=== PATIENT | female | born 1955 | race Hispanic/Latino ===

== ENCOUNTER 2016-11-09 10:46 | Inpatient (IN) | payer OTHER ==
[2016-11-09 12:11] LABS: Basophils % (Auto) 0.2 % (0.0-1.8); Eosinophils % (Auto) 0.1 % (0.0-4.3); Hematocrit 38.4 % (30.3-42.9); Hemoglobin 12.4 gm/dl (10.1-14.3); Mean Corpuscular HGB Conc 32 % (30-34); Mean Corpuscular Hemoglobin 31 pg (28-32); Mean Corpuscular Volume 97 fl (79-97); Platelet Count 244 K/mm3 (140-440); Red Blood Count 3.96 M/mm3 (3.65-5.03); Red Cell Distribution Width 14.3 % (13.2-15.2); White Blood Count 12.3 K/mm3 (4.5-11.0)
[2016-11-09] MEDS ORDERED: ZOSYN/NS 4.5GM/100ML 4.5 GM/100 ML VIAL IV ONE (12:20)
[2016-11-09] MEDS ORDERED: NACL 0.9% 1000 ML 1,000 ML IV ONE (12:20)
[2016-11-09 12:22] LABS: Anion Gap 23 mmol/L; BUN/Creatinine Ratio 31.25; Blood Urea Nitrogen 25 mg/dL (7-17); Calcium 8.8 mg/dL (8.4-10.2); Carbon Dioxide 19 mmol/L (22-30); Chloride 101.7 mmol/L (98-107); Glucose 146 mg/dL (65-100); Potassium 4.4 mmol/L (3.6-5.0); Sodium 139 mmol/L (137-145)
--- NOTE | 2016-11-09 12:26 | Emergency Department Report ---
- General Chief complaint: Medical Clearance Stated complaint: FAILURE TO THRIVE Time Seen by Provider: 11/09/16 11:58 Source: patient, EMS Mode of arrival: Stretcher Limitations: Other - History of Present Illness MD Complaint: generalized weakness -: Gradual Location: generalized Severity: moderate Severity scale (0 -10): 0 Consistency: constant Improves with: none Worsens with: none Associated Symptoms: confusion. denies: chest pain, dark stools, diaphoresis, dysuria, easy bruising, fever/chills, headaches, loss of appetite, nausea/ vomiting, rash, shortness of breath, syncope - Related Data Home Medications Medication Instructions Recorded Confirmed Last Taken Cipro XR TAB 500 mg PO BID 11/09/16 11/09/16 Unknown Clonidine 0.5 mg PO BID 11/09/16 11/09/16 Unknown Lipitor 20 mg PO ONCE 11/09/16 11/09/16 Unknown Propranolol 20 mg PO TID 11/09/16 11/09/16 Unknown amLODIPine [Norvasc] 5 mg PO DAILY 11/09/16 11/09/16 Unknown Allergies Allergy/AdvReac Type Severity Reaction Status Date / Time No Known Allergies Allergy Verified 11/09/16 11:12 ED Review of Systems ROS: Stated complaint: FAILURE TO THRIVE Other details as noted in HPI Comment: Unobtainable due to pts medical conditions ED Past Medical Hx - Past Medical History Previous Medical History?: Yes Hx Hypertension: Yes Hx Psychiatric Treatment: Yes (unknown) - Surgical History Additional Surgical History: unknown - Social History Smoking Status: Former Smoker Substance Use Type: None - Medications Home Medications: Home Medications Medication Instructions Recorded Confirmed Last Taken Type Cipro XR TAB 500 mg PO BID 11/09/16 11/09/16 Unknown History Clonidine 0.5 mg PO BID 11/09/16 11/09/16 Unknown History Lipitor 20 mg PO ONCE 11/09/16 11/09/16 Unknown History Propranolol 20 mg PO TID 11/09/16 11/09/16 Unknown History amLODIPine [Norvasc] 5 mg PO DAILY 11/09/16 11/09/16 Unknown History ED Physical Exam - General Limitations: Altered Mental Status, Other General appearance: lethargic, obtunded - Head Head exam: Present: atraumatic, normocephalic - Eye Eye exam: Present: normal appearance, PERRL - Neck Neck exam: Present: normal inspection, tenderness - Respiratory Respiratory exam: Present: normal lung sounds bilaterally - Cardiovascular Cardiovascular Exam: Present: regular rate, normal rhythm - GI/Abdominal GI/Abdominal exam: Present: soft - Extremities Exam Extremities exam: Present: normal inspection, full ROM - Back Exam Back exam: Present: normal inspection, full ROM - Neurological Exam Neurological exam: Present: altered - Skin Skin exam: Present: warm, dry ED Course Vital Signs 11/09/16 11/09/16 11/09/16 13:36 13:45 14:00 Temperature Respiratory Rate Blood Pressure 139/68 127/59 139/59 11/09/16 11/09/16 11/09/16 14:15 14:30 14:45 Temperature Respiratory Rate Blood Pressure 136/59 131/62 139/67 11/09/16 11/09/16 11/09/16 15:00 15:12 15:15 Temperature Respiratory 20 Rate Blood Pressure 129/60 138/67 11/09/16 15:32 Temperature 99.5 F Respiratory Rate Blood Pressure ED Medical Decision Making - Lab Data Result diagrams: 11/09/16 11:52 11/09/16 12:35 - EKG Data -: EKG Interpreted by Me EKG shows normal: sinus rhythm - Radiology Data Radiology results: report reviewed, image reviewed - Medical Decision Making Questionable pneumonia on cxr , elevated wbc , rest of labs normal , fluids and zosyn givem here , blood cxs done, will admit for possible pneumonia., spoke to admitting doc and agree with lan for admission,. Critical care attestation.: If time is entered above; I have spent that time in minutes in the direct care of this critically ill patient, excluding procedure time. ED Disposition Clinical Impression: Pneumonia Disposition: OP ADMITTED IP TO THIS HOSP Is pt being admited?: Yes Does the pt Need Aspirin: No Condition: Good Instructions: Bacterial Pneumonia (ED) Referrals: MICHAEL PACHECO MD [Primary Care Provider] - 3-5 Days Time of Disposition: 16:40
--- NOTE | 2016-11-09 13:13 | XRay Report ---
PORTABLE CHEST INDICATION: Fever, sepsis. COMPARISON: None similar at this institution. FINDINGS: Portable, frontal chest radiograph demonstrates normal cardiomediastinal silhouette. Aortic knob calcifications. Mild left basilar atelectasis/infiltrate/possible small pleural effusion may partly obscure the left hemidiaphragm and the lateral costophrenic angle. Biapical scarring/pleural thickening. Clear remainder lungs. Intact bones. Probable cholecystectomy clips. CONCLUSION: Mild left basilar opacity suspected, as described. Please correlate. Thank you for the opportunity to participate in this patient's care.
[2016-11-09 13:38] LABS: Alanine Aminotransferase 29 units/L (7-56); Albumin 3.7 g/dL (3.9-5); Albumin/Globulin Ratio 1.2 %; Alkaline Phosphatase 177 units/L (35-129); Anion Gap 23 mmol/L; BUN/Creatinine Ratio 31.25; Blood Urea Nitrogen 25 mg/dL (7-17); Calcium 8.8 mg/dL (8.4-10.2); Carbon Dioxide 20 mmol/L (22-30); Chloride 101.5 mmol/L (98-107); Glucose 127 mg/dL (65-100); Potassium 4.4 mmol/L (3.6-5.0); Sodium 140 mmol/L (137-145); Total Protein 6.9 g/dL (6.3-8.2)
--- NOTE | 2016-11-09 14:05 | Admit Criteria Form ---
Admission Criteria Documentation: PNEUMONIA, COMMUNITY ACQUIRED Clinical Indications for Admission to Inpatient Care ( Place 'X' for any and all applicable criteria): Admission is indicated for ANY ONE of the following (1)(2)(3): [ ]I. Hypoxemia indicated by ANY ONE of the following: [ ]a) Oxygen saturation less than 90% while breathing room air [ ]b) PO2 less than 60 mm Hg (8.0 kPa) while breathing room air [ ]c) Chronic lung disease with significant deterioration from baseline oxygenation [X]II. Appropriate diagnostic testing and treatment unavailable in outpatient or recovery facility (eg,testing or infection control measures unavailable(10) [ ]III. Moderate-risk or high-risk category patients (Pneumonia Severity Index (PSI) class IV or V, or CURB-65 score of 3 or greater). [ ]IV. Outpatient treatment failure as indicated by ANY ONE of the following(9) : [ ]a) Failure to respond to antibiotic (eg, resistant organism) [ ]b) Clinically significant adverse effects from medication (eg, vomiting) [ ]c) Complications of pneumonia (eg, empyema, bacteremia) [ ]d) Significant worsening of comorbid cond necessitating inpatient care (eg, chronic heart failure) [ ]V. Intermediate-risk category patients (eg, PSI class III or CURB-65 score 2) who do not improve with initial therapy and observation. [ ]. Immunocompromised patients (eg, AIDS, chronic steroid use) at moderate or high risk based on clinical evaluation. [ ]VII. Complicated pleural effusions (eg, exudative, loculated) [ ]VIII.Hemodynamic instability [ ] IX. Altered mental status that is severe or persistent. [ ]X. Dehydration that is severe or persistent. [ ]XI. Bacteremia [ ]XII. Respiratory finding (eg. tachypnea) that do not respond to outpatient or observation care treatment Extended stay beyond goal length of stay may be needed for (20) [ ]a) Unclear diagnosis [ ]b) Pleural disease [ ]c) Severe pneumonia or treatment failure (25 [ ]d) Respiratory failure (anticipate invasive or noninvasive ventilatory support) [ ]e) Abnormal serum electrolytes (serum Na concentration less than 135 mEq/L (mmol/L) (32)(33) [ ]f) Clinically significant comorbid illness (eg, heart failure, atrial fibrillation with rapid heart rate, alcohol withdrawal, renal insufficiency)(34)(35) [ ]g) Comorbid acute exacerbation of COPD(36) [ ]h) Concomitant diagnosis of malignancy that may be associated with malnutrition, immunologic impairment, or bronchial obstruction. [ ]i) Concomitant altered mental status [ ]j) Culture-identified Gram-negative or antibiotic-resistant organism (eg, Pseudomonas, methicillin-resistant Staphylococcus aureus)(30) [ ]k) Healthcare-associated pneumonia The original [employer] content created by [employer] has been revised. The portions of the content which have been revised are identified through the use of italic text or in bold, and [facility] has neither reviewed nor approved the modified material. All other unmodified content is copyright [employer]. Please see references footnoted in the original [facility] edition 2016 Admission Criteria Met: Yes
[2016-11-09 15:20] LABS: Bilirubin,Urine NEG (Negative); Blood,Urine NEG (Negative); Ketones,Urine 20 mg/dL (Negative); Leukocyte Esterase,Urine NEG (Negative); Mucus,Urine FEW /HPF; Nitrite,Urine NEG (Negative); Urobilinogen,Urine < 2.0 mg/dL (<2.0)
--- NOTE | 2016-11-09 16:27 | Cat Scan Report ---
CT HEAD WITHOUT CONTRAST INDICATION: Fever, sepsis. COMPARISON: None similar. FINDINGS: Noncontrast head CT demonstrates symmetric, age-appropriate ventricles and sulci without acute or recent infarct, hemorrhage, mass effect or midline shift. Mild periventricular hypodensities and approximately 3 mm left ganglionic lacunar infarct anteriorly, axial image 27, series 2. No abnormal extra-axial fluid collections. Posterior fossa structures and basilar cisterns appear within normal limits. Symmetric eye globes. Leftward nasal septal deviation and a 4 mm leftward nasal septal spur. Mild bilateral sphenoid sinus mucosal thickening anteriorly. Left mastoid tip air cell opacification. Otherwise clear remainder imaged paranasal sinuses and right mastoid air cells. Mild atherosclerotic internal carotid artery calcifications. Intact calvarium. Normal overlying scalp soft tissues. Edentulous jaw. CONCLUSION: No acute intracranial CT abnormality with few other findings, as described. Thank you for the opportunity to participate in this patient's care.
[2016-11-09] MEDS ORDERED: TYLENOL PO PRN (17:06)
[2016-11-09] MEDS ORDERED: DUONEB 0.5 MG-3 MG/3 ML SOLN IH PRN (17:06)
[2016-11-09] MEDS ORDERED: PROVENTIL IH PRN (17:10)
[2016-11-09] MEDS ORDERED: NON-FORMULARY (Lipitor 20 MG) PO SCH (17:15)
--- NOTE | 2016-11-09 17:38 | History and Physical Report ---
History of Present Illness Date of admission: 11/09/16 17:06 Chief complaint: confused, phychotic History of present illness: 61 YO Female with HTN, HLD, admitted to [facility] for Psychosis, and Mood Disorder presents to ED for evaluation. Pt unable to provide history. Pt history taken from [facility] staff, and ED staff. [facility] staff states that patient is despondent and minimally cooperative, but has experienced decreased oral intake, and noncompliant with medication over the past 3 days, and deny reports of fever, chills, CP, Palpitation, muscle cramping, skin rashes, NVD, Falls, or recent ill contacts. Past History Past Medical History: hypertension, hyperlipidemia, other (psychosis, mood disorder) Past Surgical History: No surgical history, Other (reviewed) Social history: single. denies: smoking, alcohol abuse, prescription drug abuse Family history: hypertension Medications and Allergies Allergies Allergy/AdvReac Type Severity Reaction Status Date / Time No Known Allergies Allergy Verified 11/09/16 11:12 Home Medications Medication Instructions Recorded Confirmed Last Taken Type Cipro XR TAB 500 mg PO BID 11/09/16 11/09/16 Unknown History Clonidine 0.5 mg PO BID 11/09/16 11/09/16 Unknown History Lipitor 20 mg PO ONCE 11/09/16 11/09/16 Unknown History Propranolol 20 mg PO TID 11/09/16 11/09/16 Unknown History amLODIPine [Norvasc] 5 mg PO DAILY 11/09/16 11/09/16 Unknown History Active Meds: Active Medications Acetaminophen (Tylenol) 650 mg PO Q4H PRN PRN Reason: Pain MILD(1-3)/Fever >100.5/SANCHEZ Albuterol (Proventil) 2.5 mg IH Q6HRT PRN PRN Reason: Wheezing Amlodipine Besylate (Norvasc) 5 mg PO DAILY JEFFREY Atorvastatin Calcium (Lipitor) 20 mg PO QHS [facility] Azithromycin 500 mg/ Sodium (Chloride) 250 mls @ 250 mls/hr IV Q24H JEFFREY PRN Reason: Protocol Ceftriaxone Sodium (Rocephin/Ns 1 Gm/50 Ml) 1 gm in 50 mls @ 100 mls/hr IV Q24HR JEFFREY PRN Reason: Protocol Miscellaneous Medication (Clonidine) 0.5 mg PO BID JEFFREY Propranolol HCl (Inderal) 20 mg PO TID [facility] Review of Systems ROS unobtainable: due to mental status Exam - Constitutional Vitals: Temp Pulse Resp BP Pulse Ox 99.5 F 20 144/64 11/09/16 15:32 11/09/16 15:12 11/09/16 17:00 General appearance: Present: mild distress, cachectic, disheveled - EENT Eyes: Present: PERRL ENT: hearing intact, clear oral mucosa - Neck Neck: Present: supple, normal ROM - Respiratory Respiratory effort: normal Respiratory: bilateral: CTA - Cardiovascular Rhythm: regular Heart Sounds: Present: S1 & S2 - Extremities Extremities: no ischemia Peripheral Pulses: within normal limits - Abdominal General gastrointestinal: Present: soft, non-tender, non-distended, normal bowel sounds Female genitourinary: Present: normal - Integumentary Integumentary: Present: clear, warm, dry - Musculoskeletal Musculoskeletal: gait normal, strength equal bilaterally - Psychiatric Psychiatric: no intact judgment & insight, no memory intact, no cooperative - Neurologic Neurologic: CNII-XII intact, moves all extremities Results - Labs CBC & Chem 7: 11/09/16 11:52 11/09/16 12:35 Assessment and Plan - Patient Problems (1) Aspiration pneumonia Current Visit: Yes Status: Acute Qualifiers: Aspiration pneumonia type: A Laterality: L Lung location: L Plan to address problem: Pneumonia protocol: IV abx, supplemental oxygen, nebs, aspiration precautions, pulmonary toilet, blood cultures, (2) Psychosis Current Visit: Yes Status: Acute Qualifiers: Psychosis type: P Schizoaffective disorder type: S Schizophrenia type: S Plan to address problem: Psych consulted, [address], 1:1 sitter (3) Mood disorder Current Visit: Yes Status: Acute Plan to address problem: Psych consulted, continue current therapy. (4) HTN (hypertension) Current Visit: Yes Status: Acute Qualifiers: Hypertension type: H Plan to address problem: monitor bp q shift, resume home medication. (5) DVT prophylaxis Current Visit: Yes Status: Acute
[2016-11-09] MEDS ORDERED: ROCEPHIN/NS 1 GM/50 ML 1 GM/50 ML BAG IV ONE (17:40)
[2016-11-09] MEDS: ROCEPHIN/NS 1 GM/50 ML 1 GM/50 ML BAG IV SCH (17:48)
[2016-11-09] MEDS ORDERED: ZITHROMAX 500 MG in NACL 0.9% 250ML 250 ML IV SCH (18:00)
[2016-11-09] MEDS ORDERED: PROPRANOLOL 20 MG PO SCH (20:00)
[2016-11-09] MEDS ORDERED: CLONIDINE PO SCH (22:00)
[2016-11-09] MEDS: INDERAL PO SCH (23:30)
[2016-11-10] MEDS: INDERAL PO SCH ×3 (10:58→21:11)
[2016-11-10] MEDS: ROCEPHIN/NS 1 GM/50 ML 1 GM/50 ML BAG IV SCH ×2 (11:16→18:22)
[2016-11-10] MEDS: NORVASC PO SCH (11:28)
--- NOTE | 2016-11-10 13:33 | Progress Note ---
Assessment and Plan - Patient Problems (1) Aspiration pneumonia Current Visit: Yes Status: Acute Qualifiers: Aspiration pneumonia type: A Laterality: L Lung location: L Plan to address problem: At present no clear evidence of aspiration pneumonia. If so this could be treated with by mouth anabiotic's we'll change patient to by mouth antibodies today. She put out feeding tube. Patient's clear medically to return to [place]. (2) DVT prophylaxis Current Visit: Yes Status: Acute Plan to address problem: Continue Lovenox SCD. (3) HTN (hypertension) Current Visit: Yes Status: Acute Qualifiers: Hypertension type: H Plan to address problem: She currently has optimal control of blood pressure. (4) Mood disorder Current Visit: Yes Status: Acute Plan to address problem: Mood disorder appears to be her problem at this particular time. Patient had been noncompliant with medications. Will transfer back to [place] when stable. Head CT negative chest x-ray showed minimal left lower lobe infiltrate afebrile can be treated with by mouth anabiotic's. She'll and azithromycin daily. History Interval history: He should nonverbal not speaking. We just look at you. Sitter states that he shouldn't has not talked. Will open her mouth up to eat however. Patient Hospital course complicated by pulling out IV. Hospitalist Physical - Constitutional Vitals: Temp Pulse Resp BP Pulse Ox 99.2 F 89 18 107/55 94 11/10/16 09:27 11/10/16 09:27 11/10/16 09:27 11/10/16 09:27 11/10/16 12:10 General appearance: Present: mild distress, cachectic, disheveled - EENT Eyes: Present: PERRL, EOM intact ENT: hearing intact, clear oral mucosa, dentition normal - Respiratory Respiratory effort: normal Respiratory: bilateral: CTA - Cardiovascular Rhythm: regular Heart Sounds: Present: S1 & S2 - Extremities Extremities: no ischemia, pulses intact, No edema Peripheral Pulses: within normal limits - Abdominal General gastrointestinal: soft, non-tender, non-distended - Integumentary Integumentary: Present: clear, warm, dry, normal turgor. Absent: jaundice, rash , clammy, pale - Psychiatric Psychiatric: other (inappropriate multiple) - Neurologic Neurologic: other (focal deficits noted.) Results - Labs CBC & Chem 7: 11/09/16 11:52 11/09/16 12:35 Labs: Laboratory Last Values WBC 12.3 K/mm3 (4.5-11.0) H 11/09/16 11:52 RBC 3.96 M/mm3 (3.65-5.03) 11/09/16 11:52 Hgb 12.4 gm/dl (10.1-14.3) 11/09/16 11:52 Hct 38.4 % (30.3-42.9) 11/09/16 11:52 MCV 97 fl (79-97) 11/09/16 11:52 MCH 31 pg (28-32) 11/09/16 11:52 MCHC 32 % (30-34) 11/09/16 11:52 RDW 14.3 % (13.2-15.2) 11/09/16 11:52 Plt Count 244 K/mm3 (140-440) 11/09/16 11:52 Lymph % (Auto) 13.0 % (13.4-35.0) L 11/09/16 11:52 [place] % (Auto) 10.5 % (0.0-7.3) H 11/09/16 11:52 Eos % (Auto) 0.1 % (0.0-4.3) 11/09/16 11:52 Baso % (Auto) 0.2 % (0.0-1.8) 11/09/16 11:52 Lymph # 1.6 K/mm3 (1.2-5.4) 11/09/16 11:52 [place] # 1.3 K/mm3 (0.0-0.8) H 11/09/16 11:52 Eos # 0.0 K/mm3 (0.0-0.4) 11/09/16 11:52 Baso # 0.0 K/mm3 (0.0-0.1) 11/09/16 11:52 Seg Neutrophils % 76.2 % (40.0-70.0) H 11/09/16 11:52 Seg Neutrophils # 9.4 K/mm3 (1.8-7.7) H 11/09/16 11:52 ESR 32 mm/Hr (0-20) 11/09/16 12:35 Sodium 140 mmol/L (137-145) 11/09/16 12:35 Potassium 4.4 mmol/L (3.6-5.0) 11/09/16 12:35 Chloride 101.5 mmol/L (98-107) 11/09/16 12:35 Carbon Dioxide 20 mmol/L (22-30) L 11/09/16 12:35 Anion Gap 23 mmol/L 11/09/16 12:35 BUN 25 mg/dL (7-17) H 11/09/16 12:35 Creatinine 0.8 mg/dL (0.7-1.2) 11/09/16 12:35 Estimated GFR > 60 ml/min 11/09/16 12:35 BUN/Creatinine Ratio 31.25 % 11/09/16 12:35 Glucose 127 mg/dL (65-100) H 11/09/16 12:35 Lactic Acid 1.30 mmol/L (0.7-2.0) 11/09/16 15:19 Calcium 8.8 mg/dL (8.4-10.2) 11/09/16 12:35 Total Bilirubin 0.40 mg/dL (0.1-1.2) 11/09/16 12:35 AST 65 units/L (5-40) H 11/09/16 12:35 ALT 29 units/L (7-56) 11/09/16 12:35 Alkaline Phosphatase 177 units/L (35-129) H 11/09/16 12:35 C-Reactive Protein 1.60 mg/dL (0.00-1.30) H 11/09/16 12:35 Total Protein 6.9 g/dL (6.3-8.2) 11/09/16 12:35 Albumin 3.7 g/dL (3.9-5) L 11/09/16 12:35 Albumin/Globulin Ratio 1.2 % 11/09/16 12:35 Urine Color Yellow (Yellow) 11/09/16 15:07 Urine Turbidity Clear (Clear) 11/09/16 15:07 Urine pH 5.0 (5.0-7.0) 11/09/16 15:07 Ur Specific [place] 1.021 (1.003-1.030) 11/09/16 15:07 Urine Protein 30 mg/dl mg/dL (Negative) 11/09/16 15:07 Urine Glucose (UA) Neg mg/dL (Negative) 11/09/16 15:07 Urine Ketones 20 mg/dL (Negative) 11/09/16 15:07 Urine Blood Neg (Negative) 11/09/16 15:07 Urine Nitrite Neg (Negative) 11/09/16 15:07 Urine Bilirubin Neg (Negative) 11/09/16 15:07 Urine Urobilinogen < 2.0 mg/dL (<2.0) 11/09/16 15:07 Ur Leukocyte Esterase Neg (Negative) 11/09/16 15:07 Urine WBC (Auto) 2.0 /HPF (0.0-6.0) 11/09/16 15:07 Urine RBC (Auto) 1.0 /HPF (0.0-6.0) 11/09/16 15:07 U Epithel Cells (Auto) < 1.0 /HPF (0-13.0) 11/09/16 15:07 Urine Mucus Few /HPF 11/09/16 15:07
[2016-11-10] MEDS: ZITHROMAX PO SCH (18:22)
[2016-11-10] MEDS: XYLOCAINE 1% MPF 5 mL INFILTRATI SCH (19:36)
[2016-11-10] MEDS: ROCEPHIN IM SCH (19:36)
[2016-11-11] MEDS: D5NS 1,000 ML IV SCH ×2 (01:57→15:03)
[2016-11-11] MEDS: INDERAL PO SCH ×3 (10:49→23:55)
[2016-11-11] MEDS: NORVASC PO SCH (10:50)
--- NOTE | 2016-11-11 12:28 | Progress Note ---
Assessment and Plan - Patient Problems (1) Aspiration pneumonia Current Visit: Yes Status: Acute Qualifiers: Aspiration pneumonia type: A Laterality: L Lung location: L Plan to address problem: Aspiration pneumonia resolved patient on by mouth anabiotic's if she would swallow. She does swallow from time to time. She has IM Rocephin until we can improve her mental state. Patient is being cleared for transfer she does not have pneumonia at this time. (2) DVT prophylaxis Current Visit: Yes Status: Acute Plan to address problem: Continue Lovenox SCD. (3) HTN (hypertension) Current Visit: Yes Status: Acute Qualifiers: Hypertension type: H Plan to address problem: His blood pressure is stable despite only taking blood pressure medications periodically because she would take 1 one day and refused the next. (4) Mood disorder Current Visit: Yes Status: Acute Plan to address problem: Mood disorder appears to be her problem at this particular time. Patient had been noncompliant with medications. Will transfer back to [place] when stable. Head CT negative chest x-ray showed minimal left lower lobe infiltrate afebrile can be treated with by mouth anabiotic's. She'll and azithromycin daily. Patient will require transfer to mental health facility she is being cleared for transfer back. History Interval history: After very long conversation patient did smile at me temporarily and attempted lab and attempted talk and went right back in a catatonic type state and stopped talking. She rub my hand for a while and then stopped talking again. Spoke with Mathew said that patient is been doing this for several months eating only 1 or 2 bites of food then that's it. Patient ruled out for aspiration pneumonia. She remains in a catatonic type state the majority of the time. Will require psych referral patient is being cleared for transfer to psych unit. Hospitalist Physical - Constitutional Vitals: Temp Pulse Resp BP Pulse Ox 99.8 F H 95 H 18 146/81 100 11/11/16 08:10 11/11/16 10:50 11/11/16 11:09 11/11/16 10:50 11/10/16 23:15 General appearance: Present: mild distress, cachectic, disheveled - EENT Eyes: Present: PERRL, EOM intact ENT: hearing intact, clear oral mucosa, dentition normal - Neck Neck: Present: supple, normal ROM - Respiratory Respiratory effort: normal Respiratory: bilateral: CTA - Cardiovascular Rhythm: regular Heart Sounds: Present: S1 & S2 - Extremities Extremities: pulses intact, pulses symmetrical, No edema Extremity abnormal: edema Peripheral Pulses: within normal limits - Abdominal General gastrointestinal: soft, non-tender, non-distended - Integumentary Integumentary: Present: clear, warm, dry - Psychiatric Psychiatric: depressed, other (catatonic alert but unresponsive) Results - Labs CBC & Chem 7: 11/09/16 11:52 11/09/16 12:35 Labs: Laboratory Last Values WBC 12.3 K/mm3 (4.5-11.0) H 11/09/16 11:52 RBC 3.96 M/mm3 (3.65-5.03) 11/09/16 11:52 Hgb 12.4 gm/dl (10.1-14.3) 11/09/16 11:52 Hct 38.4 % (30.3-42.9) 11/09/16 11:52 MCV 97 fl (79-97) 11/09/16 11:52 MCH 31 pg (28-32) 11/09/16 11:52 MCHC 32 % (30-34) 11/09/16 11:52 RDW 14.3 % (13.2-15.2) 11/09/16 11:52 Plt Count 244 K/mm3 (140-440) 11/09/16 11:52 Lymph % (Auto) 13.0 % (13.4-35.0) L 11/09/16 11:52 [place] % (Auto) 10.5 % (0.0-7.3) H 11/09/16 11:52 Eos % (Auto) 0.1 % (0.0-4.3) 11/09/16 11:52 Baso % (Auto) 0.2 % (0.0-1.8) 11/09/16 11:52 Lymph # 1.6 K/mm3 (1.2-5.4) 11/09/16 11:52 [place] # 1.3 K/mm3 (0.0-0.8) H 11/09/16 11:52 Eos # 0.0 K/mm3 (0.0-0.4) 11/09/16 11:52 Baso # 0.0 K/mm3 (0.0-0.1) 11/09/16 11:52 Seg Neutrophils % 76.2 % (40.0-70.0) H 11/09/16 11:52 Seg Neutrophils # 9.4 K/mm3 (1.8-7.7) H 11/09/16 11:52 ESR 32 mm/Hr (0-20) 11/09/16 12:35 Sodium 140 mmol/L (137-145) 11/09/16 12:35 Potassium 4.4 mmol/L (3.6-5.0) 11/09/16 12:35 Chloride 101.5 mmol/L (98-107) 11/09/16 12:35 Carbon Dioxide 20 mmol/L (22-30) L 11/09/16 12:35 Anion Gap 23 mmol/L 11/09/16 12:35 BUN 25 mg/dL (7-17) H 11/09/16 12:35 Creatinine 0.8 mg/dL (0.7-1.2) 11/09/16 12:35 Estimated GFR > 60 ml/min 11/09/16 12:35 BUN/Creatinine Ratio 31.25 % 11/09/16 12:35 Glucose 127 mg/dL (65-100) H 11/09/16 12:35 POC Glucose 97 (70-105) 11/11/16 04:57 Lactic Acid 1.30 mmol/L (0.7-2.0) 11/09/16 15:19 Calcium 8.8 mg/dL (8.4-10.2) 11/09/16 12:35 Total Bilirubin 0.40 mg/dL (0.1-1.2) 11/09/16 12:35 AST 65 units/L (5-40) H 11/09/16 12:35 ALT 29 units/L (7-56) 11/09/16 12:35 Alkaline Phosphatase 177 units/L (35-129) H 11/09/16 12:35 C-Reactive Protein 1.60 mg/dL (0.00-1.30) H 11/09/16 12:35 Total Protein 6.9 g/dL (6.3-8.2) 11/09/16 12:35 Albumin 3.7 g/dL (3.9-5) L 11/09/16 12:35 Albumin/Globulin Ratio 1.2 % 11/09/16 12:35 Urine Color Yellow (Yellow) 11/09/16 15:07 Urine Turbidity Clear (Clear) 11/09/16 15:07 Urine pH 5.0 (5.0-7.0) 11/09/16 15:07 Ur Specific [place] 1.021 (1.003-1.030) 11/09/16 15:07 Urine Protein 30 mg/dl mg/dL (Negative) 11/09/16 15:07 Urine Glucose (UA) Neg mg/dL (Negative) 11/09/16 15:07 Urine Ketones 20 mg/dL (Negative) 11/09/16 15:07 Urine Blood Neg (Negative) 11/09/16 15:07 Urine Nitrite Neg (Negative) 11/09/16 15:07 Urine Bilirubin Neg (Negative) 11/09/16 15:07 Urine Urobilinogen < 2.0 mg/dL (<2.0) 11/09/16 15:07 Ur Leukocyte Esterase Neg (Negative) 11/09/16 15:07 Urine WBC (Auto) 2.0 /HPF (0.0-6.0) 11/09/16 15:07 Urine RBC (Auto) 1.0 /HPF (0.0-6.0) 11/09/16 15:07 U Epithel Cells (Auto) < 1.0 /HPF (0-13.0) 11/09/16 15:07 Urine Mucus Few /HPF 11/09/16 15:07
[2016-11-11] MEDS: XYLOCAINE 1% MPF 5 mL INFILTRATI SCH (14:28)
[2016-11-11] MEDS: ZITHROMAX PO SCH (14:28)
[2016-11-11] MEDS: ROCEPHIN IM SCH (14:29)
--- NOTE | 2016-11-11 18:52 | Consultation ---
History of Present Illness - Reason for Consult Consult date: 11/11/16 Reason for consult: Mental Health Evaluation Requesting physician: MAURICIO KEVIN - Chief Complaint Chief complaint: "Confused" - History of Present Psychiatric Illness 61 y.o. white female presenting to [facility] for failure to thrive. Patient came from [facility] (Psychosis/Depression). Today patient was calm, but uncooperative during the assessment. During my conversation, patient had poor eye contact with delayed responses to questions. Patient had the bed sheets pulled up over her head, possibly responding to some type of stimuli. She stated that she may have bipolar disorder. She thinks that the staff is out to "harm" her. I explained to her that's not the case. She was not able to tell me her or the current President of the [place]. She was able to recall 2/3 numbers ( 4,8,11) within 5 mins. After she answered the question about recalling numbers, she stated "I am done talking." No gestures of SI/HI's. Per the production staff worker, patient has refused to eat and take PO medications. Medications and Allergies Allergies Allergy/AdvReac Type Severity Reaction Status Date / Time No Known Allergies Allergy Verified 11/09/16 11:12 Home Medications Medication Instructions Recorded Confirmed Last Taken Type AtorvaSTATin [Lipitor] 20 mg PO ONCE 11/09/16 11/09/16 Unknown History Cipro XR TAB 500 mg PO BID 11/09/16 11/09/16 Unknown History HYDROcodone/APAP 5-325 [[place] 1 tab PO Q6H PRN 11/09/16 11/09/16 Unknown History 5-325 mg TAB] Promethazine [Phenergan TAB] 25 mg PO Q6H PRN 11/09/16 11/09/16 Unknown History Propranolol HCl [Propranolol HCl] 20 mg PO TID 11/09/16 11/09/16 Unknown History amLODIPine [Norvasc] 5 mg PO DAILY 11/09/16 11/09/16 Unknown History clonazePAM [KlonoPIN] 0.5 mg PO BID 11/09/16 11/09/16 Unknown History Active Meds: Active Medications Acetaminophen (Tylenol) 650 mg PO Q4H PRN PRN Reason: Pain MILD(1-3)/Fever >100.5/SANCHEZ Albuterol (Proventil) 2.5 mg IH Q6HRT PRN PRN Reason: Wheezing Amlodipine Besylate (Norvasc) 5 mg PO DAILY [facility] Last Admin: 11/11/16 10:50 Dose: 5 mg Atorvastatin Calcium (Lipitor) 20 mg PO QHS [facility] Last Admin: 11/10/16 21:11 Dose: Not Given Azithromycin (Zithromax) 500 mg PO QDAY [facility] Last Admin: 11/11/16 14:28 Dose: Not Given Ceftriaxone Sodium (Rocephin) 1 gm IM Q24HR JEFFREY PRN Reason: Protocol Stop: 11/12/16 15:59 Last Admin: 11/11/16 14:29 Dose: 1 gm Clonazepam (Klonopin) 0.5 mg PO BID [facility] Last Admin: 11/11/16 10:50 Dose: 0.5 mg Dextrose/Sodium Chloride (D5ns) 1,000 mls @ 75 mls/hr IV DIRECT [facility] Last Admin: 11/11/16 15:03 Dose: 75 mls/hr Lidocaine (Xylocaine 1% Mpf 5 Ml) 2 ml INFILTRATI DAILY [facility] Stop: 11/12/16 15:59 Last Admin: 11/11/16 14:28 Dose: 2 ml Propranolol HCl (Inderal) 20 mg PO TID [facility] Last Admin: 11/11/16 18:40 Dose: Not Given Past psychiatric history - Past Medical History Past Medical History: hypertension Past Surgical History: No surgical history - past Psychiatric treatment and history Psych: Bipolar Mental Status Exam - Vital signs Last Vital Signs Temp 98.7 F 11/11/16 15:45 Pulse 97 H 11/11/16 15:45 Resp 18 11/11/16 15:45 BP 163/75 11/11/16 15:45 Pulse Ox 100 11/10/16 23:15 - Exam Narrative exam: ROS: (+) psychosis MSE: Appearance: calm, uncooperative Behavior: poor eye contact Speech: regular rate and tone Mood: "okay" Affect: congruent to mood Thought Process: circumstantial Thought Content: denies SI/HI's and AVH's Motor Activity: lying in bed Cognition: a/ox1 Insight: poor Judgment: poor Results Result Diagrams: 11/09/16 11:52 11/09/16 12:35 Abnormal lab results 11/11/16 Range/Units 12:32 POC Glucose 119 H (70-105) All other labs normal. Assessment and Plan Assessment and plan: Impression: Unspecified Mood DO with psychotic features. 61 y.o. white female presenting to [facility] for failure to thrive. Patient came from [facility] ( Psychosis/Depression). Today patient was calm, but uncooperative during the assessment. During my conversation, patient had poor eye contact and with delayed responses to questions. Patient had the bed sheets pulled up over her head, possibly responding to some type of stimuli. She stated that she may have bipolar disorder. No gestures of SI/HI's. LFT's elevated. Poor nutritional intake. Patient medically compromised. DD: Depressive DO, R/O Bipolar Recommendation/Plan: Continue 1013. Patient has poor insight of her current medical condition and unable to care for self. Start Zyprexa Zydis for psychosis /mood and Zoloft 50 mg PO for depression. Discussed possible metabolic side effects of Zyprexa. Discussed possible suicidality and medication induced jessica reference antidepressants.
[2016-11-11] MEDS: ZOLOFT PO SCH (23:57)
[2016-11-12] MEDS: INDERAL PO SCH ×6 (00:07→21:54)
[2016-11-12] MEDS: ZOLOFT PO SCH ×2 (00:09→10:41)
[2016-11-12] MEDS ORDERED: APRESOLINE IV SCH (02:00)
[2016-11-12] MEDS: APRESOLINE IV PRN (02:14)
[2016-11-12] MEDS: D5NS 1,000 ML IV SCH ×2 (04:20→19:25)
[2016-11-12] MEDS: ZITHROMAX PO SCH (10:41)
[2016-11-12] MEDS: XYLOCAINE 1% MPF 5 mL INFILTRATI SCH (10:42)
[2016-11-12] MEDS: NORVASC PO SCH (10:42)
[2016-11-12] MEDS: ROCEPHIN IM SCH (10:42)
[2016-11-12] MEDS ORDERED: LOMOTIL PO PRN (15:22)
--- NOTE | 2016-11-12 15:22 | Progress Note ---
Assessment and Plan - Patient Problems (1) Aspiration pneumonia Current Visit: Yes Status: Acute Qualifiers: Aspiration pneumonia type: A Laterality: L Lung location: L Plan to address problem: Aspiration pneumonia resolved patient on by mouth anabiotic's if she would swallow. She does swallow from time to time. She has IM Rocephin until we can improve her mental state. Patient is being cleared for transfer she does not have pneumonia at this time. (2) DVT prophylaxis Current Visit: Yes Status: Acute Plan to address problem: Continue Lovenox SCD. (3) HTN (hypertension) Current Visit: Yes Status: Acute Qualifiers: Hypertension type: essential hypertension Qualified Code(s): I10 - Essential (primary) hypertension Plan to address problem: At present remains very well controlled we'll continue present management. (4) Mood disorder Current Visit: Yes Status: Acute Plan to address problem: A chest started on Zyprexa and Zoloft. Unlikely to make patient feel better in less than 24 hours. But she has improved. She's been clear for psychiatric referral. Transfer. She has been medically cleared for transfer. History Interval history: Patient today of talking states she has diarrhea. This is the second most time she is verbalizes understanding since she's been here patient states she has diarrhea is uncertain where she would like to go with shot go home with or back to [place]. Recent started on Zyprexa. Zoloft. H&H is had negative medical workup negative for infectious process has been cleared for psychiatric transfer. Hospitalist Physical - Constitutional Vitals: Temp Pulse Resp BP Pulse Ox 98.2 F 111 H 20 160/80 96 11/12/16 07:48 11/12/16 07:48 11/12/16 07:48 11/12/16 07:48 11/12/16 07:48 General appearance: Present: mild distress, cachectic, disheveled, other - EENT Eyes: Present: PERRL, EOM intact ENT: hearing intact, clear oral mucosa, dentition normal - Neck Neck: Present: supple (eating today.), normal ROM - Respiratory Respiratory: bilateral: CTA - Cardiovascular Rhythm: regular - Extremities Extremities: no ischemia, pulses intact, pulses symmetrical, No edema, normal temperature, Full ROM Extremity abnormal: edema Peripheral Pulses: within normal limits - Abdominal General gastrointestinal: soft, non-tender, non-distended - Psychiatric Psychiatric: depressed, other (poor judgment still depressed demeanor) - Neurologic Neurologic: no focal deficits, moves all extremities Results - Labs CBC & Chem 7: 11/09/16 11:52 11/09/16 12:35 Labs: Laboratory Last Values WBC 12.3 K/mm3 (4.5-11.0) H 11/09/16 11:52 RBC 3.96 M/mm3 (3.65-5.03) 11/09/16 11:52 Hgb 12.4 gm/dl (10.1-14.3) 11/09/16 11:52 Hct 38.4 % (30.3-42.9) 11/09/16 11:52 MCV 97 fl (79-97) 11/09/16 11:52 MCH 31 pg (28-32) 11/09/16 11:52 MCHC 32 % (30-34) 11/09/16 11:52 RDW 14.3 % (13.2-15.2) 11/09/16 11:52 Plt Count 244 K/mm3 (140-440) 11/09/16 11:52 Lymph % (Auto) 13.0 % (13.4-35.0) L 11/09/16 11:52 [place] % (Auto) 10.5 % (0.0-7.3) H 11/09/16 11:52 Eos % (Auto) 0.1 % (0.0-4.3) 11/09/16 11:52 Baso % (Auto) 0.2 % (0.0-1.8) 11/09/16 11:52 Lymph # 1.6 K/mm3 (1.2-5.4) 11/09/16 11:52 [place] # 1.3 K/mm3 (0.0-0.8) H 11/09/16 11:52 Eos # 0.0 K/mm3 (0.0-0.4) 11/09/16 11:52 Baso # 0.0 K/mm3 (0.0-0.1) 11/09/16 11:52 Seg Neutrophils % 76.2 % (40.0-70.0) H 11/09/16 11:52 Seg Neutrophils # 9.4 K/mm3 (1.8-7.7) H 11/09/16 11:52 ESR 32 mm/Hr (0-20) 11/09/16 12:35 Sodium 140 mmol/L (137-145) 11/09/16 12:35 Potassium 4.4 mmol/L (3.6-5.0) 11/09/16 12:35 Chloride 101.5 mmol/L (98-107) 11/09/16 12:35 Carbon Dioxide 20 mmol/L (22-30) L 11/09/16 12:35 Anion Gap 23 mmol/L 11/09/16 12:35 BUN 25 mg/dL (7-17) H 11/09/16 12:35 Creatinine 0.8 mg/dL (0.7-1.2) 11/09/16 12:35 Estimated GFR > 60 ml/min 11/09/16 12:35 BUN/Creatinine Ratio 31.25 % 11/09/16 12:35 Glucose 127 mg/dL (65-100) H 11/09/16 12:35 POC Glucose 119 (70-105) H 11/11/16 12:32 Lactic Acid 1.30 mmol/L (0.7-2.0) 11/09/16 15:19 Calcium 8.8 mg/dL (8.4-10.2) 11/09/16 12:35 Total Bilirubin 0.40 mg/dL (0.1-1.2) 11/09/16 12:35 AST 65 units/L (5-40) H 11/09/16 12:35 ALT 29 units/L (7-56) 11/09/16 12:35 Alkaline Phosphatase 177 units/L (35-129) H 11/09/16 12:35 C-Reactive Protein 1.60 mg/dL (0.00-1.30) H 11/09/16 12:35 Total Protein 6.9 g/dL (6.3-8.2) 11/09/16 12:35 Albumin 3.7 g/dL (3.9-5) L 11/09/16 12:35 Albumin/Globulin Ratio 1.2 % 11/09/16 12:35 Urine Color Yellow (Yellow) 11/09/16 15:07 Urine Turbidity Clear (Clear) 11/09/16 15:07 Urine pH 5.0 (5.0-7.0) 11/09/16 15:07 Ur Specific [place] 1.021 (1.003-1.030) 11/09/16 15:07 Urine Protein 30 mg/dl mg/dL (Negative) 11/09/16 15:07 Urine Glucose (UA) Neg mg/dL (Negative) 11/09/16 15:07 Urine Ketones 20 mg/dL (Negative) 11/09/16 15:07 Urine Blood Neg (Negative) 11/09/16 15:07 Urine Nitrite Neg (Negative) 11/09/16 15:07 Urine Bilirubin Neg (Negative) 11/09/16 15:07 Urine Urobilinogen < 2.0 mg/dL (<2.0) 11/09/16 15:07 Ur Leukocyte Esterase Neg (Negative) 11/09/16 15:07 Urine WBC (Auto) 2.0 /HPF (0.0-6.0) 11/09/16 15:07 Urine RBC (Auto) 1.0 /HPF (0.0-6.0) 11/09/16 15:07 U Epithel Cells (Auto) < 1.0 /HPF (0-13.0) 11/09/16 15:07 Urine Mucus Few /HPF 11/09/16 15:07
--- NOTE | 2016-11-12 17:10 | Progress Note ---
Subjective - Reason for Consult Consult date: 11/12/16 Reason for consult: psychiatric follow up - Chief Complaint Chief complaint: "Confused" 61 y.o. white female presenting to [facility] for failure to thrive. Patient came from [facility] (Psychosis/Depression). Today patient was not participating in the interview. She had her eyes closed and the sheet pulled over her. The sitter reported she has been making bizarre statements with the theme of sex. She told the sitter she could not eat until she had sex. Earlier in the day the patient reportedly complained about diarrhea. The record indicates she on an opiate at home, every 6 hours as needed. Questionable opiate withdrawal. She has also been complaining about being cold. Mental Status Exam - Vital signs Last Vital Signs Temp 98.6 F 11/12/16 16:00 Pulse 89 11/12/16 16:00 Resp 20 11/12/16 16:00 BP 162/74 11/12/16 16:00 Pulse Ox 96 11/12/16 07:48 - Exam Narrative exam: ROS: (+) psychosis MSE: Appearance: uncooperative Behavior: poor eye contact Speech: would not speak today Mood: unable to etermine Affect: congruent to mood Thought Process: unable to determine Thought Content: staff report she is having auditory hallucinations Motor Activity: lying in bed Cognition: a/o unable to assess Insight: poor Judgment: poor Assessment and Plan Impression: Unspecified Mood DO with psychotic features. 61 y.o. white female presenting to [facility] for failure to thrive. Patient came from [facility] ( Psychosis/Depression. Poor nutritional intake. Patient medically compromised. consider possible opiate withdrawal-diarrhea/abdominal cramps/flu like symptoms DD: Depressive DO, R/O Bipolar Recommendation/Plan: Continue 1013. Patient has poor insight of her current medical condition and unable to care for self. Continue Zyprexa Zydis for psychosis/mood and Zoloft 50 mg PO for depression.
[2016-11-13] MEDS: D5NS 1,000 ML IV SCH ×2 (09:07→21:46)
[2016-11-13] MEDS: INDERAL PO SCH ×4 (09:09→21:55)
[2016-11-13] MEDS: ZITHROMAX PO SCH (11:20)
[2016-11-13] MEDS: ZOLOFT PO SCH (11:20)
[2016-11-13] MEDS: NORVASC PO SCH (11:20)
--- NOTE | 2016-11-13 14:06 | Progress Note ---
Assessment and Plan - Patient Problems (1) Aspiration pneumonia Current Visit: Yes Status: Resolved Qualifiers: Aspiration pneumonia type: A Laterality: L Lung location: L Plan to address problem: Aspiration pneumonia resolved patient on by mouth anabiotic's if she would swallow. She does swallow from time to time. She has IM Rocephin until we can improve her mental state. Patient is being cleared for transfer she does not have pneumonia at this time. (2) DVT prophylaxis Current Visit: Yes Status: Acute Plan to address problem: Continue Lovenox SCD. (3) HTN (hypertension) Current Visit: Yes Status: Acute Qualifiers: Hypertension type: essential hypertension Qualified Code(s): I10 - Essential (primary) hypertension Plan to address problem: At present remains very well controlled we'll continue present management. (4) Mood disorder Current Visit: Yes Status: Acute Plan to address problem: At present awaiting inpatient psychiatric transfer. Patient is being cleared medically for transfer to inpatient psych unit. History Interval history: A is back showing psychotic behavior today just staring out the window would not speak today. Awaiting inpatient psych. Hospitalist Physical - Constitutional Vitals: Temp Pulse Resp BP Pulse Ox 99 F 89 16 137/69 95 11/13/16 07:10 11/13/16 07:10 11/13/16 07:10 11/13/16 07:10 11/13/16 07:10 General appearance: Present: mild distress, cachectic, disheveled, other - EENT Eyes: Present: PERRL, EOM intact ENT: hearing intact, clear oral mucosa, dentition normal - Neck Neck: Present: supple, normal ROM - Respiratory Respiratory: bilateral: CTA - Cardiovascular Rhythm: regular Heart Sounds: Present: S1 & S2 - Extremities Extremities: no ischemia, pulses intact, pulses symmetrical, No edema, normal temperature Peripheral Pulses: within normal limits - Abdominal General gastrointestinal: soft, non-tender, non-distended - Integumentary Integumentary: Present: clear, warm, dry - Psychiatric Psychiatric: cooperative, agitated - Neurologic Neurologic: CNII-XII intact, no focal deficits Results - Labs CBC & Chem 7: 11/09/16 11:52 11/09/16 12:35 Labs: Laboratory Last Values WBC 12.3 K/mm3 (4.5-11.0) H 11/09/16 11:52 RBC 3.96 M/mm3 (3.65-5.03) 11/09/16 11:52 Hgb 12.4 gm/dl (10.1-14.3) 11/09/16 11:52 Hct 38.4 % (30.3-42.9) 11/09/16 11:52 MCV 97 fl (79-97) 11/09/16 11:52 MCH 31 pg (28-32) 11/09/16 11:52 MCHC 32 % (30-34) 11/09/16 11:52 RDW 14.3 % (13.2-15.2) 11/09/16 11:52 Plt Count 244 K/mm3 (140-440) 11/09/16 11:52 Lymph % (Auto) 13.0 % (13.4-35.0) L 11/09/16 11:52 [place] % (Auto) 10.5 % (0.0-7.3) H 11/09/16 11:52 Eos % (Auto) 0.1 % (0.0-4.3) 11/09/16 11:52 Baso % (Auto) 0.2 % (0.0-1.8) 11/09/16 11:52 Lymph # 1.6 K/mm3 (1.2-5.4) 11/09/16 11:52 [place] # 1.3 K/mm3 (0.0-0.8) H 11/09/16 11:52 Eos # 0.0 K/mm3 (0.0-0.4) 11/09/16 11:52 Baso # 0.0 K/mm3 (0.0-0.1) 11/09/16 11:52 Seg Neutrophils % 76.2 % (40.0-70.0) H 11/09/16 11:52 Seg Neutrophils # 9.4 K/mm3 (1.8-7.7) H 11/09/16 11:52 ESR 32 mm/Hr (0-20) 11/09/16 12:35 Sodium 140 mmol/L (137-145) 11/09/16 12:35 Potassium 4.4 mmol/L (3.6-5.0) 11/09/16 12:35 Chloride 101.5 mmol/L (98-107) 11/09/16 12:35 Carbon Dioxide 20 mmol/L (22-30) L 11/09/16 12:35 Anion Gap 23 mmol/L 11/09/16 12:35 BUN 25 mg/dL (7-17) H 11/09/16 12:35 Creatinine 0.8 mg/dL (0.7-1.2) 11/09/16 12:35 Estimated GFR > 60 ml/min 11/09/16 12:35 BUN/Creatinine Ratio 31.25 % 11/09/16 12:35 Glucose 127 mg/dL (65-100) H 11/09/16 12:35 POC Glucose 119 (70-105) H 11/11/16 12:32 Lactic Acid 1.30 mmol/L (0.7-2.0) 11/09/16 15:19 Calcium 8.8 mg/dL (8.4-10.2) 11/09/16 12:35 Total Bilirubin 0.40 mg/dL (0.1-1.2) 11/09/16 12:35 AST 65 units/L (5-40) H 11/09/16 12:35 ALT 29 units/L (7-56) 11/09/16 12:35 Alkaline Phosphatase 177 units/L (35-129) H 11/09/16 12:35 C-Reactive Protein 1.60 mg/dL (0.00-1.30) H 11/09/16 12:35 Total Protein 6.9 g/dL (6.3-8.2) 11/09/16 12:35 Albumin 3.7 g/dL (3.9-5) L 11/09/16 12:35 Albumin/Globulin Ratio 1.2 % 11/09/16 12:35 Urine Color Yellow (Yellow) 11/09/16 15:07 Urine Turbidity Clear (Clear) 11/09/16 15:07 Urine pH 5.0 (5.0-7.0) 11/09/16 15:07 Ur Specific [place] 1.021 (1.003-1.030) 11/09/16 15:07 Urine Protein 30 mg/dl mg/dL (Negative) 11/09/16 15:07 Urine Glucose (UA) Neg mg/dL (Negative) 11/09/16 15:07 Urine Ketones 20 mg/dL (Negative) 11/09/16 15:07 Urine Blood Neg (Negative) 11/09/16 15:07 Urine Nitrite Neg (Negative) 11/09/16 15:07 Urine Bilirubin Neg (Negative) 11/09/16 15:07 Urine Urobilinogen < 2.0 mg/dL (<2.0) 11/09/16 15:07 Ur Leukocyte Esterase Neg (Negative) 11/09/16 15:07 Urine WBC (Auto) 2.0 /HPF (0.0-6.0) 11/09/16 15:07 Urine RBC (Auto) 1.0 /HPF (0.0-6.0) 11/09/16 15:07 U Epithel Cells (Auto) < 1.0 /HPF (0-13.0) 11/09/16 15:07 Urine Mucus Few /HPF 11/09/16 15:07
--- NOTE | 2016-11-13 14:09 | Progress Note ---
Subjective - Reason for Consult Consult date: 11/13/16 Reason for consult: Psychiatry Follow-up - Chief Complaint Chief complaint: "Nonverbal" 61 y.o. white female presenting to [facility] for failure to thrive. Patient came from [facility] (Psychosis/Depression). Today patient is nonverbal and staring at the ceiling. She would not look at me or answer any questions. Per the staff, her current presentation has not changed since the start of their shift. No gestures of SI/HI's and AVH's. Mental Status Exam - Vital signs Last Vital Signs Temp 99 F 11/13/16 07:10 Pulse 89 11/13/16 07:10 Resp 16 11/13/16 07:10 BP 137/69 11/13/16 07:10 Pulse Ox 95 11/13/16 07:10 - Exam Narrative exam: MSE: Appearance: uncooperative Behavior: poor eye contact Speech: nonverbal Mood: unable to assess Affect: unable to assess Thought Process: unable to assess Thought Content: no gestures of SI/HI's and AVH's Motor Activity: lying in bed Cognition: unable to assess Insight: unable to assess Judgment: unable to assess Assessment and Plan Impression: Unspecified Mood DO. 61 y.o. white female presenting to [facility] for failure to thrive. Patient came from [facility] (Psychosis/Depression). Today patient is nonverbal and staring at the ceiling. She would not look at me or answer any questions. No gestures of SI/HI's and AVH's. Recommendation/Plan: Continue 1013. Patient has poor insight of her current medical condition and unable to care for self. Continue Zyprexa Zydis 5 mg PO HS. This tablet that dissolves on the patient's tongue (disintegrating tablet). Start Ativan 1 mg IV BID for possible catatonia. Monitor the patient for over sedation.
[2016-11-13] MEDS: ATIVAN IV SCH (21:47)
[2016-11-13] MEDS ORDERED: ATIVAN IV SCH (22:00)
[2016-11-14] MEDS: APRESOLINE IV PRN (04:11)
--- NOTE | 2016-11-14 07:09 | Progress Note ---
Assessment and Plan - Patient Problems (1) Aspiration pneumonia Current Visit: Yes Status: Resolved Qualifiers: Aspiration pneumonia type: A Laterality: L Lung location: L Plan to address problem: Aspiration pneumonia resolved patient on by mouth anabiotic's if she would swallow. She does swallow from time to time. She has IM Rocephin until we can improve her mental state. Patient is being cleared for transfer she does not have pneumonia at this time. (2) DVT prophylaxis Current Visit: Yes Status: Acute Plan to address problem: Continue Lovenox SCD. (3) HTN (hypertension) Current Visit: Yes Status: Acute Qualifiers: Hypertension type: essential hypertension Qualified Code(s): I10 - Essential (primary) hypertension Plan to address problem: At present remains very well controlled we'll continue present management. (4) Mood disorder Current Visit: Yes Status: Acute Plan to address problem: Patient with psychotic mood disorder psychosis still under 1013. Patient has been medically cleared for transfer to inpatient psychiatric facility. Case management diligently working or transfer. Subjective Date of service: 11/14/16 Principal diagnosis: aspiration pneumonia psychosis Interval history: Patient this a.m. is more interactive than yesterday. Her attentiveness comes and goes attempt to smile and talk today. Did not eat is much yesterday.Awaiting inpatient psych transfer patient has been medically cleared. Objective - Constitutional Vitals: Vital Signs - 12hr 11/13/16 11/13/16 11/13/16 19:35 21:45 23:30 Temperature 100.0 F H 99.7 F H Pulse Rate [ 95 H 95 H 84 Right] Respiratory 18 20 Rate Blood Pressure 169/80 157/75 181/81 [Right Arm] O2 Sat by Pulse 97 98 Oximetry 11/14/16 11/14/16 11/14/16 04:09 04:45 06:19 Temperature 99.0 F 98.6 F Pulse Rate [ 90 101 H 77 Right] Respiratory 18 20 Rate Blood Pressure 165/78 108/61 121/66 [Right Arm] O2 Sat by Pulse 98 97 Oximetry General appearance: Present: no acute distress - EENT Eyes: PERRL, EOM intact ENT: hearing intact, clear oral mucosa - Neck Neck: supple, normal ROM - Respiratory Respiratory effort: normal Respiratory: bilateral: CTA - Cardiovascular Rhythm: regular Heart Sounds: Present: S1 & S2. Absent: gallop, rub Extremities: pulses intact, No edema, normal color, Full ROM - Gastrointestinal General gastrointestinal: Present: soft, non-tender, non-distended, normal bowel sounds - Integumentary Integumentary: clear, warm, dry - Musculoskeletal Musculoskeletal: strength equal bilaterally, generalized weakness - Neurologic Neurologic: moves all extremities - Psychiatric Psychiatric: depressed, other (Poor cognition poor memory inappropriate) - Labs CBC & Chem 7: 11/09/16 11:52 11/09/16 12:35
[2016-11-14] MEDS: INDERAL PO SCH ×3 (08:00→21:49)
[2016-11-14] MEDS: ZITHROMAX PO SCH (12:15)
[2016-11-14] MEDS: NORVASC PO SCH (12:16)
[2016-11-14] MEDS: ATIVAN IV SCH ×2 (12:16→21:53)
[2016-11-14] MEDS: ZOLOFT PO SCH (12:17)
[2016-11-14] MEDS: D5NS 1,000 ML IV SCH (12:31)
[2016-11-15] MEDS: D5NS 1,000 ML IV SCH ×2 (00:52→16:28)
--- NOTE | 2016-11-15 06:20 | Progress Note ---
Subjective - Reason for Consult Consult date: 11/14/16 Reason for consult: Psychiatry Follow-up - Chief Complaint Chief complaint: "I am tired" 61 y.o. white female presenting to [facility] for failure to thrive. Patient came from [facility] (Psychosis/Depression). Today patient is calm during assessment. She answered some questions today when asked. She stated that she was tired of her situation. She could not explain her behavior yesterday (mutism ) 11/13/2016. I asked her did she have a family member or friend cell number, she stated "yes." She only could give me the first 6 numbers. She promised to take her PO medications moving forward. She denies SI/HI's and AVH"s. For 11/14/2016 - This is a late entry Mental Status Exam - Vital signs Last Vital Signs Temp 99.4 F 11/15/16 00:56 Pulse 79 11/15/16 00:56 Resp 18 11/15/16 00:56 BP 159/79 11/15/16 00:56 Pulse Ox 98 11/15/16 00:56 - Exam Narrative exam: MSE: Appearance: calm, cooperative Behavior: poor eye contact Speech: low rate and tone Mood: "just tired" Affect: flat Thought Process: circumstantial Thought Content: denies SI/HI's and AVH's Motor Activity: lying in bed Cognition: a/o x2 Insight: limited Judgment: limited Assessment and Plan Impression: Unspecified Mood DO. 61 y.o. Today patient is calm during assessment. She answered some questions today when asked. She stated that she was tired of her situation. She could not explain her behavior yesterday (mutism ) 11/13/2016. Patient nutritional intake is poor at this time. She denies SI/HI's and AVH's. Recommendation/Plan: Continue 1013. Patient has poor insight of her current medical condition and unable to care for self. Continue Zyprexa Zydis 5 mg PO HS. This tablet that dissolves on the patient's tongue (disintegrating tablet). Continue Ativan 1 mg IV BID for possible catatonia. Monitor the patient for over sedation.
[2016-11-15] MEDS: INDERAL PO SCH ×3 (08:33→21:20)
[2016-11-15] MEDS: ZITHROMAX PO SCH (11:01)
[2016-11-15] MEDS: ZOLOFT PO SCH (11:01)
[2016-11-15] MEDS: NORVASC PO SCH (11:01)
[2016-11-15] MEDS: ATIVAN IV SCH ×2 (11:05→21:23)
--- NOTE | 2016-11-15 11:37 | Progress Note ---
Subjective - Reason for Consult Consult date: 11/15/16 Reason for consult: Psychiatry Follow-up - Chief Complaint Chief complaint: "Hello there" 61 y.o. white female presenting to [facility] for failure to thrive. Patient came from [facility] (Psychosis/Depression). Today patient is calm and cooperative, but delusional during assessment. She stated that she continue to have surgery to her "rectum." She stated everyday a surgeon come to her room and do a procedure on her. She stated that her "rectum" surgery started at another hospital. Today she is more attentive then previous assessments. She denies SI/HI's, AVH's, and sleep disturbance. Patient appetite is still poor. Mental Status Exam - Vital signs Last Vital Signs Temp 98.7 F 11/15/16 10:06 Pulse 80 11/15/16 10:06 Resp 18 11/15/16 10:06 BP 142/70 11/15/16 11:01 Pulse Ox 98 11/15/16 10:06 - Exam Narrative exam: MSE: Appearance: calm, cooperative Behavior: poor eye contact Speech: low rate and tone Mood: "better" Affect: flat Thought Process: circumstantial Thought Content: denies SI/HI's and AVH's, delusional Motor Activity: lying in bed Cognition: a/o x2 Insight: limited Judgment: limited Assessment and Plan Impression: Unspecified Mood DO. 61 y.o. Today patient is calm and cooperative, but delusional during assessment. She stated that she continue to have surgery to her "rectum." She stated everyday a surgeon come to her room and do a procedure on her. She stated that her "rectum" started at another hospital. She denies SI/HI's and AVH's. Recommendation/Plan: Continue 1013. Patient has poor insight of her current medical condition and unable to care for self. Increased Zyprexa Zydis to 10 mg PO HS (stimulate appetite). This tablet will dissolve on the patient's tongue ( disintegrating tablet). Modify Ativan to 0.5 mg IV BID for possible catatonia ( taper). Monitor the patient for over sedation. Give PO medications with pudding or applesauce.
--- NOTE | 2016-11-15 15:09 | Progress Note ---
Assessment and Plan Assessment and plan: Aspiration pneumonia. On Zithromax oral. Stable to go to psych. Mood disorder. Psych following. Continue 1013 as recommended by psych.Zoloft, Olanzapine Hypertension. Patient is medically stable for transfer to psych facility awaiting placement with attention. Norvasc Hyperlipidemia. Lipitor Disposition. She is medically stable to transfer to inpatient psych. Awaiting placement History Interval history: Feels better, No headache Hospitalist Physical - Physical exam Narrative exam: Gen: appearance :Not in acute distress, HEENT: normocephalic atraumatic Neck :supple no JVD Lungs: clear to auscultation bilaterally, no crackles or wheezes Heart:S1 and S2 regular, no murmurs, no gallop, no rubs Abdomen soft, nontender, nondistended, normal bowel sounds Extremities: no edema, no clubbing, or cyanosis Neuro : Awake, alert,no focal neurologic signs Psych:Depressed - Constitutional Vitals: Temp Pulse Resp BP Pulse Ox 98.7 F 80 18 128/54 98 11/15/16 10:06 11/15/16 10:06 11/15/16 10:06 11/15/16 14:04 11/15/16 10:06 General appearance: Present: no acute distress Results - Labs CBC & Chem 7: 11/09/16 11:52 11/09/16 12:35 Labs: Laboratory Last Values WBC 12.3 K/mm3 (4.5-11.0) H 11/09/16 11:52 RBC 3.96 M/mm3 (3.65-5.03) 11/09/16 11:52 Hgb 12.4 gm/dl (10.1-14.3) 11/09/16 11:52 Hct 38.4 % (30.3-42.9) 11/09/16 11:52 MCV 97 fl (79-97) 11/09/16 11:52 MCH 31 pg (28-32) 11/09/16 11:52 MCHC 32 % (30-34) 11/09/16 11:52 RDW 14.3 % (13.2-15.2) 11/09/16 11:52 Plt Count 244 K/mm3 (140-440) 11/09/16 11:52 Lymph % (Auto) 13.0 % (13.4-35.0) L 11/09/16 11:52 [place] % (Auto) 10.5 % (0.0-7.3) H 11/09/16 11:52 Eos % (Auto) 0.1 % (0.0-4.3) 11/09/16 11:52 Baso % (Auto) 0.2 % (0.0-1.8) 11/09/16 11:52 Lymph # 1.6 K/mm3 (1.2-5.4) 11/09/16 11:52 [place] # 1.3 K/mm3 (0.0-0.8) H 11/09/16 11:52 Eos # 0.0 K/mm3 (0.0-0.4) 11/09/16 11:52 Baso # 0.0 K/mm3 (0.0-0.1) 11/09/16 11:52 Seg Neutrophils % 76.2 % (40.0-70.0) H 11/09/16 11:52 Seg Neutrophils # 9.4 K/mm3 (1.8-7.7) H 11/09/16 11:52 ESR 32 mm/Hr (0-20) 11/09/16 12:35 Sodium 140 mmol/L (137-145) 11/09/16 12:35 Potassium 4.4 mmol/L (3.6-5.0) 11/09/16 12:35 Chloride 101.5 mmol/L (98-107) 11/09/16 12:35 Carbon Dioxide 20 mmol/L (22-30) L 11/09/16 12:35 Anion Gap 23 mmol/L 11/09/16 12:35 BUN 25 mg/dL (7-17) H 11/09/16 12:35 Creatinine 0.8 mg/dL (0.7-1.2) 11/09/16 12:35 Estimated GFR > 60 ml/min 11/09/16 12:35 BUN/Creatinine Ratio 31.25 % 11/09/16 12:35 Glucose 127 mg/dL (65-100) H 11/09/16 12:35 POC Glucose 119 (70-105) H 11/11/16 12:32 Lactic Acid 1.30 mmol/L (0.7-2.0) 11/09/16 15:19 Calcium 8.8 mg/dL (8.4-10.2) 11/09/16 12:35 Total Bilirubin 0.40 mg/dL (0.1-1.2) 11/09/16 12:35 AST 65 units/L (5-40) H 11/09/16 12:35 ALT 29 units/L (7-56) 11/09/16 12:35 Alkaline Phosphatase 177 units/L (35-129) H 11/09/16 12:35 C-Reactive Protein 1.60 mg/dL (0.00-1.30) H 11/09/16 12:35 Total Protein 6.9 g/dL (6.3-8.2) 11/09/16 12:35 Albumin 3.7 g/dL (3.9-5) L 11/09/16 12:35 Albumin/Globulin Ratio 1.2 % 11/09/16 12:35 Urine Color Yellow (Yellow) 11/09/16 15:07 Urine Turbidity Clear (Clear) 11/09/16 15:07 Urine pH 5.0 (5.0-7.0) 11/09/16 15:07 Ur Specific [place] 1.021 (1.003-1.030) 11/09/16 15:07 Urine Protein 30 mg/dl mg/dL (Negative) 11/09/16 15:07 Urine Glucose (UA) Neg mg/dL (Negative) 11/09/16 15:07 Urine Ketones 20 mg/dL (Negative) 11/09/16 15:07 Urine Blood Neg (Negative) 11/09/16 15:07 Urine Nitrite Neg (Negative) 11/09/16 15:07 Urine Bilirubin Neg (Negative) 11/09/16 15:07 Urine Urobilinogen < 2.0 mg/dL (<2.0) 11/09/16 15:07 Ur Leukocyte Esterase Neg (Negative) 11/09/16 15:07 Urine WBC (Auto) 2.0 /HPF (0.0-6.0) 11/09/16 15:07 Urine RBC (Auto) 1.0 /HPF (0.0-6.0) 11/09/16 15:07 U Epithel Cells (Auto) < 1.0 /HPF (0-13.0) 11/09/16 15:07 Urine Mucus Few /HPF 11/09/16 15:07
[2016-11-16] MEDS: D5NS 1,000 ML IV SCH (05:58)
[2016-11-16] MEDS: INDERAL PO SCH ×3 (08:53→21:49)
[2016-11-16] MEDS: ATIVAN IV SCH ×2 (09:38→22:00)
[2016-11-16] MEDS: NORVASC PO SCH (09:38)
[2016-11-16] MEDS: ZOLOFT PO SCH (09:39)
[2016-11-16] MEDS: ZITHROMAX PO SCH (09:39)
--- NOTE | 2016-11-16 09:59 | Progress Note ---
Assessment and Plan Assessment and plan: Aspiration pneumonia. On Zithromax oral. Stable to go to psych. Mood disorder. Psych following. Continue 1013 as recommended by psych.Zoloft, Olanzapine Hypertension. Patient is medically stable for transfer to psych facility awaiting placement with attention. Norvasc Hyperlipidemia. Lipitor Disposition. She is medically stable to transfer to inpatient psych. Awaiting placement History Interval history: Feels better, No headache Hospitalist Physical - Physical exam Narrative exam: Gen: appearance :Not in acute distress, HEENT: normocephalic atraumatic Neck :supple no JVD Lungs: clear to auscultation bilaterally, no crackles or wheezes Heart:S1 and S2 regular, no murmurs, no gallop, no rubs Abdomen soft, non-tender, non-distended, normal bowel sounds Extremities: no edema, no clubbing, or cyanosis Neuro : Awake, alert,no focal neurological signs Psych:Depressed - Constitutional Vitals: Temp Pulse Resp BP Pulse Ox 98.3 F 80 18 113/63 97 11/16/16 08:34 11/16/16 08:34 11/16/16 08:34 11/16/16 09:38 11/16/16 08:34 General appearance: Present: no acute distress Results - Labs CBC & Chem 7: 11/09/16 11:52 11/09/16 12:35 Labs: Laboratory Last Values WBC 12.3 K/mm3 (4.5-11.0) H 11/09/16 11:52 RBC 3.96 M/mm3 (3.65-5.03) 11/09/16 11:52 Hgb 12.4 gm/dl (10.1-14.3) 11/09/16 11:52 Hct 38.4 % (30.3-42.9) 11/09/16 11:52 MCV 97 fl (79-97) 11/09/16 11:52 MCH 31 pg (28-32) 11/09/16 11:52 MCHC 32 % (30-34) 11/09/16 11:52 RDW 14.3 % (13.2-15.2) 11/09/16 11:52 Plt Count 244 K/mm3 (140-440) 11/09/16 11:52 Lymph % (Auto) 13.0 % (13.4-35.0) L 11/09/16 11:52 [place] % (Auto) 10.5 % (0.0-7.3) H 11/09/16 11:52 Eos % (Auto) 0.1 % (0.0-4.3) 11/09/16 11:52 Baso % (Auto) 0.2 % (0.0-1.8) 11/09/16 11:52 Lymph # 1.6 K/mm3 (1.2-5.4) 11/09/16 11:52 [place] # 1.3 K/mm3 (0.0-0.8) H 11/09/16 11:52 Eos # 0.0 K/mm3 (0.0-0.4) 11/09/16 11:52 Baso # 0.0 K/mm3 (0.0-0.1) 11/09/16 11:52 Seg Neutrophils % 76.2 % (40.0-70.0) H 11/09/16 11:52 Seg Neutrophils # 9.4 K/mm3 (1.8-7.7) H 11/09/16 11:52 ESR 32 mm/Hr (0-20) 11/09/16 12:35 Sodium 140 mmol/L (137-145) 11/09/16 12:35 Potassium 4.4 mmol/L (3.6-5.0) 11/09/16 12:35 Chloride 101.5 mmol/L (98-107) 11/09/16 12:35 Carbon Dioxide 20 mmol/L (22-30) L 11/09/16 12:35 Anion Gap 23 mmol/L 11/09/16 12:35 BUN 25 mg/dL (7-17) H 11/09/16 12:35 Creatinine 0.8 mg/dL (0.7-1.2) 11/09/16 12:35 Estimated GFR > 60 ml/min 11/09/16 12:35 BUN/Creatinine Ratio 31.25 % 11/09/16 12:35 Glucose 127 mg/dL (65-100) H 11/09/16 12:35 POC Glucose 119 (70-105) H 11/11/16 12:32 Lactic Acid 1.30 mmol/L (0.7-2.0) 11/09/16 15:19 Calcium 8.8 mg/dL (8.4-10.2) 11/09/16 12:35 Total Bilirubin 0.40 mg/dL (0.1-1.2) 11/09/16 12:35 AST 65 units/L (5-40) H 11/09/16 12:35 ALT 29 units/L (7-56) 11/09/16 12:35 Alkaline Phosphatase 177 units/L (35-129) H 11/09/16 12:35 C-Reactive Protein 1.60 mg/dL (0.00-1.30) H 11/09/16 12:35 Total Protein 6.9 g/dL (6.3-8.2) 11/09/16 12:35 Albumin 3.7 g/dL (3.9-5) L 11/09/16 12:35 Albumin/Globulin Ratio 1.2 % 11/09/16 12:35 Urine Color Yellow (Yellow) 11/09/16 15:07 Urine Turbidity Clear (Clear) 11/09/16 15:07 Urine pH 5.0 (5.0-7.0) 11/09/16 15:07 Ur Specific [place] 1.021 (1.003-1.030) 11/09/16 15:07 Urine Protein 30 mg/dl mg/dL (Negative) 11/09/16 15:07 Urine Glucose (UA) Neg mg/dL (Negative) 11/09/16 15:07 Urine Ketones 20 mg/dL (Negative) 11/09/16 15:07 Urine Blood Neg (Negative) 11/09/16 15:07 Urine Nitrite Neg (Negative) 11/09/16 15:07 Urine Bilirubin Neg (Negative) 11/09/16 15:07 Urine Urobilinogen < 2.0 mg/dL (<2.0) 11/09/16 15:07 Ur Leukocyte Esterase Neg (Negative) 11/09/16 15:07 Urine WBC (Auto) 2.0 /HPF (0.0-6.0) 11/09/16 15:07 Urine RBC (Auto) 1.0 /HPF (0.0-6.0) 11/09/16 15:07 U Epithel Cells (Auto) < 1.0 /HPF (0-13.0) 11/09/16 15:07 Urine Mucus Few /HPF 11/09/16 15:07
--- NOTE | 2016-11-16 18:16 | Progress Note ---
Subjective - Reason for Consult Consult date: 11/16/16 Reason for consult: psychiatric follow up - Chief Complaint Chief complaint: "I know I'm confused" 61 y.o. white female presenting to [facility] for failure to thrive. Patient came from [facility] (Psychosis/Depression). Today patient is calm and cooperative, but delusional during assessment.Her delusions have a sexual theme but she is intermittently aware she is saying bizarre statements. She has been wetting herself and requesting a diaper. Although, she reports getting up to the bathroom for a bowel movement. Staff report she is not eating. She attempted to have a conversation but had to be redirected as she was tangential with delusional thought content. She states her mind is scattered. Mental Status Exam - Vital signs Last Vital Signs Temp 98.6 F 11/16/16 16:05 Pulse 70 11/16/16 16:05 Resp 20 11/16/16 16:05 BP 123/64 11/16/16 16:05 Pulse Ox 97 11/16/16 08:34 - Exam Narrative exam: MSE: Appearance: calm, cooperative Behavior: poor eye contact Speech: low rate and tone Mood: anxious Affect: flat Thought Process: circumstantial, tangential Thought Content: denies SI/HI's and AVH's, delusional Motor Activity: lying in bed Cognition: a/o x2 Insight: limited Judgment: limited Assessment and Plan Impression: Unspecified Mood DO with psychotic features. 61 y.o. white female presenting to [facility] for failure to thrive. Patient came from [facility] ( Psychosis/Depression. Poor nutritional intake. Patient medically compromised. DD: Depressive DO, R/O Bipolar Recommendation/Plan: Continue 1013. Patient has poor insight of her current medical condition and unable to care for self. Continue Zyprexa Zydis 10mg for psychosis/mood and Zoloft 50 mg PO for depression.
[2016-11-17] MEDS: INDERAL PO SCH ×4 (01:00→21:02)
[2016-11-17] MEDS: D5NS 1,000 ML IV SCH (01:03)
[2016-11-17] MEDS: NORVASC PO SCH (10:26)
[2016-11-17] MEDS: ZOLOFT PO SCH (10:27)
[2016-11-17] MEDS: ZITHROMAX PO SCH (10:27)
--- NOTE | 2016-11-17 10:33 | Progress Note ---
Subjective - Reason for Consult Consult date: 11/17/16 Reason for consult: Psychiatry Follow-up - Chief Complaint Chief complaint: "Who are you" 61 y.o. white female presenting to [facility] for failure to thrive. Patient came from [facility] (Psychosis/Depression). Today patient is calm and cooperative, but delusional during assessment. Her conversation is bizarre in nature and hard to follow. Patient has a tangential thought process and had to be redirected multiple times. She stated, "I am tired, period." No gestures of SI/HI's and AVH's. Mental Status Exam - Vital signs Last Vital Signs Temp 99.7 F H 11/17/16 08:15 Pulse 89 11/17/16 08:46 Resp 18 11/17/16 08:15 BP 135/67 11/17/16 08:46 Pulse Ox 98 11/17/16 08:15 - Exam Narrative exam: MSE: Appearance: calm, cooperative Behavior: poor eye contact Speech: low rate and tone Mood: "so so" Affect: flat Thought Process: tangential Thought Content: no gestures of SI/HI's and AVH's, delusional Motor Activity: lying in bed Cognition: a/o x2 Insight: limited Judgment: limited Assessment and Plan Impression: Unspecified Mood DO. 61 y.o. 61 y.o. white female presenting to [facility] for failure to thrive. Patient came from [facility] (Psychosis/ Depression). Today patient is calm and cooperative, but delusional during assessment. Her conversation is bizarre in nature and hard to follow. Patient has a tangential thought process and had to be redirected multiple times. She stated, "I am tired, period." Patient is medically compromised. No gestures of SI/HI's and AVH's. Recommendation/Plan: Continue 1013. Patient has poor insight of her current medical condition and unable to care for self. Modify Zyprexa Zydis to 5 mg PO QAM and continue at 10 mg PO HS (stimulate appetite). This tablet will dissolve on the patient's tongue (disintegrating tablet). Ativan being tapered. Give PO medications with pudding or applesauce.
[2016-11-17] MEDS ORDERED: ATIVAN IV SCH (10:45)
[2016-11-17] MEDS: ATIVAN IV SCH (13:34)
--- NOTE | 2016-11-17 17:42 | Progress Note ---
Assessment and Plan Assessment and plan: Aspiration pneumonia. On Zithromax oral. Stable to go to psych. Mood disorder. Psych following. Continue 1013 as recommended by psych.Zoloft, Olanzapine Hypertension. Patient is medically stable for transfer to psych facility awaiting placement with attention. Norvasc Hyperlipidemia. Lipitor Disposition. She is medically stable to transfer to inpatient psych. Awaiting placement History Interval history: Feels better, No headache Hospitalist Physical - Physical exam Narrative exam: Gen: appearance :Not in acute distress, HEENT: normocephalic atraumatic Neck :supple no JVD Lungs: clear to auscultation bilaterally, no crackles or wheezes Heart:S1 and S2 regular, no murmurs, no gallop, no rubs Abdomen soft, non-tender, non-distended, normal bowel sounds Extremities: no edema, no clubbing, or cyanosis Neuro : Awake, alert,no focal neurological signs Psych:Depressed - Constitutional Vitals: Temp Pulse Resp BP Pulse Ox 99.7 F H 89 18 120/44 98 11/17/16 08:15 11/17/16 10:26 11/17/16 08:15 11/17/16 15:20 11/17/16 08:15 General appearance: Present: no acute distress Results - Labs CBC & Chem 7: 11/09/16 11:52 11/09/16 12:35 Labs: Laboratory Last Values WBC 12.3 K/mm3 (4.5-11.0) H 11/09/16 11:52 RBC 3.96 M/mm3 (3.65-5.03) 11/09/16 11:52 Hgb 12.4 gm/dl (10.1-14.3) 11/09/16 11:52 Hct 38.4 % (30.3-42.9) 11/09/16 11:52 MCV 97 fl (79-97) 11/09/16 11:52 MCH 31 pg (28-32) 11/09/16 11:52 MCHC 32 % (30-34) 11/09/16 11:52 RDW 14.3 % (13.2-15.2) 11/09/16 11:52 Plt Count 244 K/mm3 (140-440) 11/09/16 11:52 Lymph % (Auto) 13.0 % (13.4-35.0) L 11/09/16 11:52 [place] % (Auto) 10.5 % (0.0-7.3) H 11/09/16 11:52 Eos % (Auto) 0.1 % (0.0-4.3) 11/09/16 11:52 Baso % (Auto) 0.2 % (0.0-1.8) 11/09/16 11:52 Lymph # 1.6 K/mm3 (1.2-5.4) 11/09/16 11:52 [place] # 1.3 K/mm3 (0.0-0.8) H 11/09/16 11:52 Eos # 0.0 K/mm3 (0.0-0.4) 11/09/16 11:52 Baso # 0.0 K/mm3 (0.0-0.1) 11/09/16 11:52 Seg Neutrophils % 76.2 % (40.0-70.0) H 11/09/16 11:52 Seg Neutrophils # 9.4 K/mm3 (1.8-7.7) H 11/09/16 11:52 ESR 32 mm/Hr (0-20) 11/09/16 12:35 Sodium 140 mmol/L (137-145) 11/09/16 12:35 Potassium 4.4 mmol/L (3.6-5.0) 11/09/16 12:35 Chloride 101.5 mmol/L (98-107) 11/09/16 12:35 Carbon Dioxide 20 mmol/L (22-30) L 11/09/16 12:35 Anion Gap 23 mmol/L 11/09/16 12:35 BUN 25 mg/dL (7-17) H 11/09/16 12:35 Creatinine 0.8 mg/dL (0.7-1.2) 11/09/16 12:35 Estimated GFR > 60 ml/min 11/09/16 12:35 BUN/Creatinine Ratio 31.25 % 11/09/16 12:35 Glucose 127 mg/dL (65-100) H 11/09/16 12:35 POC Glucose 119 (70-105) H 11/11/16 12:32 Lactic Acid 1.30 mmol/L (0.7-2.0) 11/09/16 15:19 Calcium 8.8 mg/dL (8.4-10.2) 11/09/16 12:35 Total Bilirubin 0.40 mg/dL (0.1-1.2) 11/09/16 12:35 AST 65 units/L (5-40) H 11/09/16 12:35 ALT 29 units/L (7-56) 11/09/16 12:35 Alkaline Phosphatase 177 units/L (35-129) H 11/09/16 12:35 C-Reactive Protein 1.60 mg/dL (0.00-1.30) H 11/09/16 12:35 Total Protein 6.9 g/dL (6.3-8.2) 11/09/16 12:35 Albumin 3.7 g/dL (3.9-5) L 11/09/16 12:35 Albumin/Globulin Ratio 1.2 % 11/09/16 12:35 Urine Color Yellow (Yellow) 11/09/16 15:07 Urine Turbidity Clear (Clear) 11/09/16 15:07 Urine pH 5.0 (5.0-7.0) 11/09/16 15:07 Ur Specific [place] 1.021 (1.003-1.030) 11/09/16 15:07 Urine Protein 30 mg/dl mg/dL (Negative) 11/09/16 15:07 Urine Glucose (UA) Neg mg/dL (Negative) 11/09/16 15:07 Urine Ketones 20 mg/dL (Negative) 11/09/16 15:07 Urine Blood Neg (Negative) 11/09/16 15:07 Urine Nitrite Neg (Negative) 11/09/16 15:07 Urine Bilirubin Neg (Negative) 11/09/16 15:07 Urine Urobilinogen < 2.0 mg/dL (<2.0) 11/09/16 15:07 Ur Leukocyte Esterase Neg (Negative) 11/09/16 15:07 Urine WBC (Auto) 2.0 /HPF (0.0-6.0) 11/09/16 15:07 Urine RBC (Auto) 1.0 /HPF (0.0-6.0) 11/09/16 15:07 U Epithel Cells (Auto) < 1.0 /HPF (0-13.0) 11/09/16 15:07 Urine Mucus Few /HPF 11/09/16 15:07
[2016-11-18] MEDS: LOVENOX SUB-Q SCH (00:16)
[2016-11-18] MEDS: D5NS 1,000 ML IV SCH ×2 (07:29→18:15)
[2016-11-18] MEDS: INDERAL PO SCH ×2 (08:44→14:00)
[2016-11-18] MEDS: NORVASC PO SCH (10:00)
[2016-11-18] MEDS: ZITHROMAX PO SCH (10:22)
[2016-11-18] MEDS: ZOLOFT PO SCH (10:22)
--- NOTE | 2016-11-18 13:29 | Progress Note ---
Assessment and Plan Assessment and plan: Aspiration pneumonia. On Zithromax oral. Stable to go to psych. Mood disorder. Psych following. Continue 1013 as recommended by psych.Zoloft, Olanzapine Hypertension. Patient is medically stable for transfer to psych facility awaiting placement with attention. Norvasc Hyperlipidemia. Lipitor Disposition. She is medically stable to transfer to inpatient psych. Awaiting placement History Interval history: Feels better, No headache, no new complaints Hospitalist Physical - Physical exam Narrative exam: Gen appearance :Not in acute distress, HEENT: normocephalic atraumatic Neck :supple no JVD Lungs: clear to auscultation bilaterally, no crackles or wheezes Heart:S1 and S2 regular, no murmurs, no gallop, no rubs Abdomen soft, non-tender, non-distended, normal bowel sounds Extremities: no edema, no clubbing, or cyanosis Neuro : Awake, alert,no focal neurological signs Psych:Depressed - Constitutional Vitals: Temp Pulse Resp BP Pulse Ox 98.9 F 82 16 114/57 98 11/18/16 08:20 11/18/16 08:20 11/18/16 08:20 11/18/16 08:44 11/18/16 08:20 General appearance: Present: no acute distress Results - Labs CBC & Chem 7: 11/09/16 11:52 11/09/16 12:35 Labs: Laboratory Last Values WBC 12.3 K/mm3 (4.5-11.0) H 11/09/16 11:52 RBC 3.96 M/mm3 (3.65-5.03) 11/09/16 11:52 Hgb 12.4 gm/dl (10.1-14.3) 11/09/16 11:52 Hct 38.4 % (30.3-42.9) 11/09/16 11:52 MCV 97 fl (79-97) 11/09/16 11:52 MCH 31 pg (28-32) 11/09/16 11:52 MCHC 32 % (30-34) 11/09/16 11:52 RDW 14.3 % (13.2-15.2) 11/09/16 11:52 Plt Count 244 K/mm3 (140-440) 11/09/16 11:52 Lymph % (Auto) 13.0 % (13.4-35.0) L 11/09/16 11:52 [place] % (Auto) 10.5 % (0.0-7.3) H 11/09/16 11:52 Eos % (Auto) 0.1 % (0.0-4.3) 11/09/16 11:52 Baso % (Auto) 0.2 % (0.0-1.8) 11/09/16 11:52 Lymph # 1.6 K/mm3 (1.2-5.4) 11/09/16 11:52 [place] # 1.3 K/mm3 (0.0-0.8) H 11/09/16 11:52 Eos # 0.0 K/mm3 (0.0-0.4) 11/09/16 11:52 Baso # 0.0 K/mm3 (0.0-0.1) 11/09/16 11:52 Seg Neutrophils % 76.2 % (40.0-70.0) H 11/09/16 11:52 Seg Neutrophils # 9.4 K/mm3 (1.8-7.7) H 11/09/16 11:52 ESR 32 mm/Hr (0-20) 11/09/16 12:35 Sodium 140 mmol/L (137-145) 11/09/16 12:35 Potassium 4.4 mmol/L (3.6-5.0) 11/09/16 12:35 Chloride 101.5 mmol/L (98-107) 11/09/16 12:35 Carbon Dioxide 20 mmol/L (22-30) L 11/09/16 12:35 Anion Gap 23 mmol/L 11/09/16 12:35 BUN 25 mg/dL (7-17) H 11/09/16 12:35 Creatinine 0.8 mg/dL (0.7-1.2) 11/09/16 12:35 Estimated GFR > 60 ml/min 11/09/16 12:35 BUN/Creatinine Ratio 31.25 % 11/09/16 12:35 Glucose 127 mg/dL (65-100) H 11/09/16 12:35 POC Glucose 119 (70-105) H 11/11/16 12:32 Lactic Acid 1.30 mmol/L (0.7-2.0) 11/09/16 15:19 Calcium 8.8 mg/dL (8.4-10.2) 11/09/16 12:35 Total Bilirubin 0.40 mg/dL (0.1-1.2) 11/09/16 12:35 AST 65 units/L (5-40) H 11/09/16 12:35 ALT 29 units/L (7-56) 11/09/16 12:35 Alkaline Phosphatase 177 units/L (35-129) H 11/09/16 12:35 C-Reactive Protein 1.60 mg/dL (0.00-1.30) H 11/09/16 12:35 Total Protein 6.9 g/dL (6.3-8.2) 11/09/16 12:35 Albumin 3.7 g/dL (3.9-5) L 11/09/16 12:35 Albumin/Globulin Ratio 1.2 % 11/09/16 12:35 Urine Color Yellow (Yellow) 11/09/16 15:07 Urine Turbidity Clear (Clear) 11/09/16 15:07 Urine pH 5.0 (5.0-7.0) 11/09/16 15:07 Ur Specific [place] 1.021 (1.003-1.030) 11/09/16 15:07 Urine Protein 30 mg/dl mg/dL (Negative) 11/09/16 15:07 Urine Glucose (UA) Neg mg/dL (Negative) 11/09/16 15:07 Urine Ketones 20 mg/dL (Negative) 11/09/16 15:07 Urine Blood Neg (Negative) 11/09/16 15:07 Urine Nitrite Neg (Negative) 11/09/16 15:07 Urine Bilirubin Neg (Negative) 11/09/16 15:07 Urine Urobilinogen < 2.0 mg/dL (<2.0) 11/09/16 15:07 Ur Leukocyte Esterase Neg (Negative) 11/09/16 15:07 Urine WBC (Auto) 2.0 /HPF (0.0-6.0) 11/09/16 15:07 Urine RBC (Auto) 1.0 /HPF (0.0-6.0) 11/09/16 15:07 U Epithel Cells (Auto) < 1.0 /HPF (0-13.0) 11/09/16 15:07 Urine Mucus Few /HPF 11/09/16 15:07
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
[2016-11-19] MEDS: INDERAL PO SCH ×3 (00:41→13:44)
[2016-11-19] MEDS: LOVENOX SUB-Q SCH (00:45)
[2016-11-19] MEDS: D5NS 1,000 ML IV SCH (10:03)
--- NOTE | 2016-11-19 10:35 | Progress Note ---
Assessment and Plan Assessment and plan: Aspiration pneumonia. On Zithromax oral. Stable to go to psych. Mood disorder. Psych following. Continue 1013 as recommended by psych.Zoloft, Olanzapine Hypertension. Patient is medically stable for transfer to psych facility awaiting placement with attention. Norvasc Hyperlipidemia. Lipitor Disposition. She is medically stable to transfer to inpatient psych. Awaiting placement History Interval history: Feels better, No headache, no new complaints Hospitalist Physical - Physical exam Narrative exam: Gen appearance :Not in acute distress, HEENT: normocephalic atraumatic Neck :supple no JVD Lungs: clear to auscultation bilaterally, no crackles or wheezes Heart:S1 and S2 regular, no murmurs, no gallop, no rubs Abdomen soft, non-tender, non-distended, normal bowel sounds Extremities: no edema, no clubbing, or cyanosis Neuro : Awake, alert,no focal neurological signs Psych:Depressed - Constitutional Vitals: Temp Pulse Resp BP Pulse Ox 99.3 F 74 18 113/57 95 11/19/16 07:00 11/19/16 07:00 11/19/16 07:00 11/19/16 07:00 11/19/16 07:00 General appearance: Present: no acute distress Results - Labs CBC & Chem 7: 11/09/16 11:52 11/09/16 12:35 Labs: Laboratory Last Values WBC 12.3 K/mm3 (4.5-11.0) H 11/09/16 11:52 RBC 3.96 M/mm3 (3.65-5.03) 11/09/16 11:52 Hgb 12.4 gm/dl (10.1-14.3) 11/09/16 11:52 Hct 38.4 % (30.3-42.9) 11/09/16 11:52 MCV 97 fl (79-97) 11/09/16 11:52 MCH 31 pg (28-32) 11/09/16 11:52 MCHC 32 % (30-34) 11/09/16 11:52 RDW 14.3 % (13.2-15.2) 11/09/16 11:52 Plt Count 244 K/mm3 (140-440) 11/09/16 11:52 Lymph % (Auto) 13.0 % (13.4-35.0) L 11/09/16 11:52 [place] % (Auto) 10.5 % (0.0-7.3) H 11/09/16 11:52 Eos % (Auto) 0.1 % (0.0-4.3) 11/09/16 11:52 Baso % (Auto) 0.2 % (0.0-1.8) 11/09/16 11:52 Lymph # 1.6 K/mm3 (1.2-5.4) 11/09/16 11:52 [place] # 1.3 K/mm3 (0.0-0.8) H 11/09/16 11:52 Eos # 0.0 K/mm3 (0.0-0.4) 11/09/16 11:52 Baso # 0.0 K/mm3 (0.0-0.1) 11/09/16 11:52 Seg Neutrophils % 76.2 % (40.0-70.0) H 11/09/16 11:52 Seg Neutrophils # 9.4 K/mm3 (1.8-7.7) H 11/09/16 11:52 ESR 32 mm/Hr (0-20) 11/09/16 12:35 Sodium 140 mmol/L (137-145) 11/09/16 12:35 Potassium 4.4 mmol/L (3.6-5.0) 11/09/16 12:35 Chloride 101.5 mmol/L (98-107) 11/09/16 12:35 Carbon Dioxide 20 mmol/L (22-30) L 11/09/16 12:35 Anion Gap 23 mmol/L 11/09/16 12:35 BUN 25 mg/dL (7-17) H 11/09/16 12:35 Creatinine 0.8 mg/dL (0.7-1.2) 11/09/16 12:35 Estimated GFR > 60 ml/min 11/09/16 12:35 BUN/Creatinine Ratio 31.25 % 11/09/16 12:35 Glucose 127 mg/dL (65-100) H 11/09/16 12:35 POC Glucose 119 (70-105) H 11/11/16 12:32 Lactic Acid 1.30 mmol/L (0.7-2.0) 11/09/16 15:19 Calcium 8.8 mg/dL (8.4-10.2) 11/09/16 12:35 Total Bilirubin 0.40 mg/dL (0.1-1.2) 11/09/16 12:35 AST 65 units/L (5-40) H 11/09/16 12:35 ALT 29 units/L (7-56) 11/09/16 12:35 Alkaline Phosphatase 177 units/L (35-129) H 11/09/16 12:35 C-Reactive Protein 1.60 mg/dL (0.00-1.30) H 11/09/16 12:35 Total Protein 6.9 g/dL (6.3-8.2) 11/09/16 12:35 Albumin 3.7 g/dL (3.9-5) L 11/09/16 12:35 Albumin/Globulin Ratio 1.2 % 11/09/16 12:35 Urine Color Yellow (Yellow) 11/09/16 15:07 Urine Turbidity Clear (Clear) 11/09/16 15:07 Urine pH 5.0 (5.0-7.0) 11/09/16 15:07 Ur Specific [place] 1.021 (1.003-1.030) 11/09/16 15:07 Urine Protein 30 mg/dl mg/dL (Negative) 11/09/16 15:07 Urine Glucose (UA) Neg mg/dL (Negative) 11/09/16 15:07 Urine Ketones 20 mg/dL (Negative) 11/09/16 15:07 Urine Blood Neg (Negative) 11/09/16 15:07 Urine Nitrite Neg (Negative) 11/09/16 15:07 Urine Bilirubin Neg (Negative) 11/09/16 15:07 Urine Urobilinogen < 2.0 mg/dL (<2.0) 11/09/16 15:07 Ur Leukocyte Esterase Neg (Negative) 11/09/16 15:07 Urine WBC (Auto) 2.0 /HPF (0.0-6.0) 11/09/16 15:07 Urine RBC (Auto) 1.0 /HPF (0.0-6.0) 11/09/16 15:07 U Epithel Cells (Auto) < 1.0 /HPF (0-13.0) 11/09/16 15:07 Urine Mucus Few /HPF 11/09/16 15:07
[2016-11-19] MEDS: ZITHROMAX PO SCH (10:37)
[2016-11-19] MEDS: ZOLOFT PO SCH (10:37)
[2016-11-19] MEDS: NORVASC PO SCH ×2 (12:10→17:01)
--- NOTE | 2016-11-19 14:01 | Progress Note ---
Subjective - Reason for Consult Consult date: 11/19/16 Reason for consult: depression, inability to ambulate and poor po intake Mental Status Exam - Vital signs Last Vital Signs Temp 99.3 F 11/19/16 07:00 Pulse 72 11/19/16 13:44 Resp 18 11/19/16 07:00 BP 109/57 11/19/16 13:44 Pulse Ox 95 11/19/16 07:00 Assessment and Plan Today patient was seen in her hospital room alongside with her and her [id number] as well as her grandson. On examination, patient was somewhat guarded but cooperative. Patient noted that it she is able to eat and was visibly eating in front of me. Additionally, the noted that they're able to take care of her if she were to go home today. Upon further verification, patient noted that she indeed did not overdose on her propranolol. corroborated this information as all of her pills in the bottle except to which she took on the day that EMS was called. Given the confusion about the situation, it appears that the patient had not overdosed and was not requiring inpatient level of care for her psychiatric illness. Patient continues to have symptoms of anxiety and depression which need to be addressed and the family has agreed to do this outpatient basis with their psychiatrist. General Appearance: casually dressed, no acute distress Sensorium/Consciousness: alert and responding to external stimuli; clear Orientation: person, place, time and situation Eye Contact: limited Attitude / Behavior: guarded Psychomotor & Musculoskeletal Activity: Difficulty ambulating independently, may need support such as crutches a wheelchair Mood: ok Affect: constricted, limited range Speech / Language: fluent, with normal rate/rhythm/tone Thought Processes: organized, logical, linear Thought Content: rumination, no SI, no HI Perception: no AVH Insight: limited Judgement: limitied Capacity for ADLs: Need some support ambulating Plan: 1013 will not be renewed Outpatient follow-up in 7-10 days Provide prescription for current psychotropic medications
--- NOTE | 2016-11-19 15:55 | Discharge Summary ---
Providers - Providers Date of Admission: 11/09/16 17:06 Date of discharge: 11/19/16 Attending physician: LEATHA STEPHENSON 11/09/16 17:09 psychiatry consult [Consult to Mental Health] [CONS] Routine Reason For Exam: psychosis, mood disorder Place consult to:: psych Notified:: yes Phone number called:: ex [phone] If yes, spoke with:: Elio Time called:: 09:15 11/10/16 06:55 Physical Therapy Evaluation and Treat [CONS] Routine Comment: Reason For Exam: Generalized Weakness Speech Therapy Evaluation and Treat [CONS] Routine Reason For Exam: Having difficulty chewing and swallowing food Primary care physician: [employer] Hospitalization Condition: Good Disposition: DC- TO HOME OR SELFCARE - Discharge Diagnoses (1) HTN (hypertension) Status: Acute Qualifiers: Hypertension type: essential hypertension Qualified Code(s): I10 - Essential (primary) hypertension (2) Mood disorder Status: Acute (3) Psychosis Status: Acute Qualifiers: Psychosis type: P Schizoaffective disorder type: S Schizophrenia type: S (4) Aspiration pneumonia Status: Resolved Qualifiers: Aspiration pneumonia type: A Laterality: L Lung location: L Exam - Constitutional Vitals: Temp Pulse Resp BP Pulse Ox 99.3 F 72 18 109/57 95 11/19/16 07:00 11/19/16 13:44 11/19/16 07:00 11/19/16 13:44 11/19/16 07:00 Plan Activity: advance as tolerated Diet: low salt Additional Instructions: 1.Follow up with PCP in 1 week. 2.Follow up with Psychiatry in 1 week Follow up with: MICHAEL PACHECO MD [Staff Physician] - 3-5 Days Prescriptions: OLANzapine ZYDIS [ZyPREXA Zydis] 10 mg PO HS #30 tab.rapdis OLANzapine ZYDIS [ZyPREXA Zydis] 5 mg PO QAM #30 tab.rapdis Sertraline [Zoloft] 50 mg PO QDAY #30 tablet
[2016-11-19 16:51] VITALS: BP 122/73
== END 2016-11-19 19:40 | disposition home or self-care (01) | DRG 178 ==
LOC: ED 10:46 → 3A 17:06
PROVIDERS: ADMIT Internal Medicine; ATTEND Internal Medicine
DX: J69.0 Pneumonitis due to inhalation of food and vomit (principal); F23 Brief psychotic disorder; I10 Essential (primary) hypertension; F39 Unspecified mood [affective] disorder; E78.5 Hyperlipidemia, unspecified; R62.7 Adult failure to thrive; Z91.14 Patient's other noncompliance with medication regimen; Z82.49 Family history of ischemic heart disease and other diseases of the circulatory system
CPT/HCPCS: 36415; 70450; 71010; 80048; 80053; 81001; 82140; 82962; 85025; 85652; 86140; 87040; 93005; 93010; 96365; 96367; A9270-GY; G8996-GN; G8997-GN; G8998-GN; J0360; J0456; J0696; J1650; J2060; J2543; J7030; J7042; J7050